=== PATIENT | male | born 1935 | race Caucasian/White ===

== ENCOUNTER 2019-04-05 15:26 | Inpatient (IN) ==
[~2019-04-05 15:26] MED LIST: NS 1,000 ML ONE
[2019-04-05] MEDS ORDERED: ASPIRIN PO ONE (15:34)
[2019-04-05] MEDS ORDERED: DUONEB (A & A) INH ONE (15:39)
[2019-04-05 15:49] LABS: BASO# 0.06 X1000 (0.0-0.2); BASO% 0.4 % (0.0-0.8); EOS# 0.81 X1000 (0.0-0.7); EOS% 5.3 % (0.0-10.0); HEMATOCRIT 47.7 % (42.0-52.0); HEMOGLOBIN 14.3 g/dL (14.0-18.0); IMM GRAN# 0.05 X1000 (0.0-0.04); IMM GRAN% 0.3 % (0.0-0.5); LYMPH% 46.1 % (20.5-51.1); MCH 25.6 PG (27-31); MCV 85.5 FL (81-99); MONO# 1.27 X1000 (0.11-0.59); MONO% 8.4 % (1.7-9.3); NEUT% 39.5 % (42.2-75.2); PLT 294 X1000 (130-400); RBC 5.58 XMIL (4.7-6.1); RDW 15.3 % (11.5-14.5); WBC 15.19 X1000 (4.8-10.8)
[2019-04-05 15:57] LABS: BE -7.1 mmoll (-3.0-3.0); BLOOD TYPE ARTERIAL; HCO3-(ACT) 19.1 mmoll (20.0-26.0); METHB 1.2 % (0.0-1.5); PCO2(98.6) 41 mmHg (35-45); PO2(98.6) 58 mmHg (60-100); SAMPLE BLOOD; SAO2 89.8 % (95.0-100.0); THB 13.9 g/dL (11.5-17.4); pH(98.6) 7.28 (7.35-7.45)
[2019-04-05 15:59] LABS: INR 1.05; PROTIME 14.2 Seconds (11.0-16.0)
--- NOTE | 2019-04-05 15:59 | Diag Imaging Result Doc PS360 ---
EXAM: CHEST-PORTABLE HISTORY: respiratory distress TECHNIQUE: Single view COMPARISON: 05/24/2017 FINDINGS: Poor inspiratory effort. There are increased interstitial markings throughout both lungs. The heart is mildly prominent. There is a left-sided pacemaker on the current exam. No pleural effusions identified. IMPRESSION: Bilateral infiltrates Electronically signed by Tj Vela 04/05/2019 3:57 PM
[2019-04-05 16:00] LABS: O2HB 86.8 % (95.0-99.0)
[2019-04-05 16:00] LABS: PTT 29.9 Seconds (22.3-41.8)
[2019-04-05 16:01] LABS: ALLEN TEST NO; MODALITY VENTIMASK
[2019-04-05 16:07] LABS: AGAP 20; ALBUMIN 4.3 g/dL (3.5-5.0); ALKALINE PHOSPHATASE 98 U/L (32-122); BUN 25 mg/dL (8-22); CALCIUM 8.9 mg/dL (8.8-10.2); CHLORIDE 103 mmol/L (98-107); COSMO 300; CREATININE 1.1 mg/dL (0.7-1.2); ESTIMATED GFR > 60; GLUCOSE 324 mg/dL (70-104); GOT 45 U/L (10-34); GPT 23 U/L (10-44); POTASSIUM 3.7 mmol/L (3.5-5.1); SODIUM 142 mmol/L (136-145); TCO2 19 mmol/L (25-35); TOTAL PROTEIN 7.2 g/dL (6.3-8.3)
[2019-04-05 16:18] LABS: CK PROFILE 1053 U/L (24-204)
[2019-04-05 16:28] LABS: URINE SOURCE CLEAN CATCH
[2019-04-05 16:31] LABS: BILIRUBIN URINE NEGATIVE (NEGATIVE); BLOOD URINE MODERATE (NEGATIVE); COLOR YELLOW; GLUCOSE URINE 70 mg/dL (NEGATIVE); KETONE URINE NEGATIVE (NEGATIVE); LEUKOCYTES URINE NEGATIVE (NEGATIVE); NITRITE URINE NEGATIVE (NEGATIVE); PROTEIN URINE 30 mg/dL (NEGATIVE); SP GRAVITY URINE 1.021; TURBIDITY URINE CLEAR (CLEAR); UROBILINOGEN URINE 3 mg/dL (NORMAL)
[2019-04-05 16:33] LABS: UR EPITHELIAL CELLS <10 /HPF (<10); URINE BACTERIA NEGATIVE /HPF; URINE RBC TNTC /HPF (<10); URINE WBC <10 /HPF (<10)
[2019-04-05 16:34] LABS: CK INDEX 2.1 (0.0-2.5); CK-MB 21.75 ng/mL (0.0-5.0)
--- NOTE | 2019-04-05 16:38 | Diag Imaging Result Doc PS360 ---
EXAM: CT HEAD W/O CONTRAST HISTORY: MENTAL STATUS CHANGES TECHNIQUE: CT head without contrast COMPARISON: 03/31/2019 FINDINGS: The patient's head is rotated in the gantry. No parenchymal hemorrhage. No epidural or subdural hematoma. No subarachnoid hemorrhage. No mass identified on this noncontrasted exam. No hydrocephalus. No sinus opacification. IMPRESSION: No interval change. This exam was performed using automated exposure control, adjustment of mA or kV according to patient size, and/or use of iterative reconstruction technique. Electronically signed by Tj Vela 04/05/2019 4:36 PM
[2019-04-05] MEDS ORDERED: LEVAQUIN 750 MG/D5W 750 MG/150 ML IVPB IV ONE (16:42)
--- NOTE | 2019-04-05 16:44 | EKG Report ---
Test Performed on : 04/05/2019 3:45:11 PM Test Reason : sob Blood Pressure : / mmHG Vent. Rate : 115 BPM Atrial Rate : 115 BPM P-R Int : 000 ms QRS Dur : 182 ms QT Int : 384 ms P-R-T Axes : 032 -57 101 degrees QTc Int : 531 ms Ventricular-paced rhythm with occasional sinus complexes Abnormal ECG When compared with ECG of 05-APR-2019 15:31, (Unconfirmed) Previous ECG has undetermined rhythm, needs review Unconfirmed Result
[2019-04-05] MEDS ORDERED: NS 1,000 ML IV ONE ×2 (16:53→18:07)
[2019-04-05] MEDS ORDERED: LEVAQUIN PO SCH (18:15)
[2019-04-05] MEDS ORDERED: ZOFRAN IV PRN (18:16)
[2019-04-05] MEDS ORDERED: TYLENOL PO PRN (18:16)
[2019-04-05] MEDS ORDERED: NS 1,000 ML IV SCH (18:30)
[2019-04-05] MEDS: DOXYCYCLINE 100 MG in NS 250 ML IV SCH (18:41)
--- NOTE | 2019-04-05 19:48 | HISTORY AND PHYSICAL ---
CHIEF COMPLAINT: Acute respiratory failure. HISTORY OF PRESENT ILLNESS: The patient is an 83-year-old male who presented to the ER via ambulance service. The ambulance service said they were unable to suction his tracheostomy. The patient has been seen [facility] for similar symptoms. Upon arrival to the ER, his O2 saturation was 45%. He was unresponsive. Blood pressures were low. Heart rates were 123. While in the ER, he was able to have his trach eventually suctioned out and his vital signs almost immediately improved. Currently, he is saturating 99% with blood pressure 116/61, respiratory 16. Patient is awake. He does each questions and overall he is much improved. ALLERGIES: No known drug allergies. MEDICATIONS: Synthroid , metformin 500 b.i.d., omeprazole 20 b.i.d., Zocor 40 at bedtime, hydrocodone p.r.n., and Bactroban as needed. REVIEW OF SYSTEMS: As noted above. Prior to this event, the patient denies any fevers, chills. Denies any recent infections. Denies any GI or issues. PAST MEDICAL HISTORY: Significant for hypertension, pacemaker, history of throat cancer requiring tracheotomy, diabetes, hypothyroidism, history of dementia. FAMILY HISTORY: Noncontributory. SOCIAL HISTORY: The patient is a long-time former smoker, but does not currently smoke, drink or use illicit substances. PHYSICAL EXAMINATION: VITAL SIGNS: Reviewed. Currently much improved. He is afebrile, pulse 103, respiratory 16, BP 116/61. HEENT: Normocephalic. NECK: Supple. SKIN: He does have a healing laceration in the left forehead. He has a tracheostomy that is not red or swollen. RESPIRATORY: Currently, he has a Ventimask over his trachea stoma. On initial presentation, he was in severe distress. Currently, he is in no distress. Initially, upon presenting to the ER, he was not ventilating well at all. He had effectively very little air movement. Currently, he has good air movement and he is ventilating quite well. His skin color has returned back to normal. LABORATORY: WBC is 15. CPK 1353 with a troponin pending and a BNP of 689. Plasma lactate initially high at 6.1. PH 7.28, PO2 at 58 on a Ventimask. ASSESSMENT: 1. Acute respiratory failure appears to have resolved. He did have a significant mucous plug that once removed, his O2 saturations went from 45% to 91% and his systolic blood pressure went from 65 to 125. 2. Probable pulmonary infiltrate on chest x-ray, although, he does have bilateral old scarring. PLAN: We are going to admit the patient to the hospital, place him on antibiotics, breathing treatments, oxygen and supportive care. Continue his home medications, place him on diabetic diet and we will follow. cc: Jaquan Leblanc MD MTDD
[2019-04-05] MEDS: DUONEB (A & A) INH PRN (21:20)
[2019-04-05 23:10] LABS: AGAP 14; ALBUMIN 3.4 g/dL (3.5-5.0); ALKALINE PHOSPHATASE 66 U/L (32-122); BUN 22 mg/dL (8-22); CALCIUM 7.7 mg/dL (8.8-10.2); CHLORIDE 109 mmol/L (98-107); COSMO 290; CREATININE 0.8 mg/dL (0.7-1.2); ESTIMATED GFR > 60; GLUCOSE 125 mg/dL (70-104); GOT 39 U/L (10-34); GPT 19 U/L (10-44); POTASSIUM 3.8 mmol/L (3.5-5.1); SODIUM 143 mmol/L (136-145); TCO2 20 mmol/L (25-35); TOTAL PROTEIN 5.9 g/dL (6.3-8.3)
[2019-04-06] MEDS: ATIVAN IV PRN ×3 (01:41→20:01)
[2019-04-06] MEDS: DUONEB (A & A) INH PRN ×3 (04:42→17:26)
[2019-04-06 06:14] LABS: HEMATOCRIT 39.4 % (42.0-52.0); HEMOGLOBIN 12.1 g/dL (14.0-18.0); MCH 25.7 PG (27-31); MCHC 30.7 g/dL (33-37); MCV 83.8 FL (81-99); MPV 11.1 FL (7.4-10.4); RBC 4.7 XMIL (4.7-6.1); RDW 15.2 % (11.5-14.5); WBC 15.3 X1000 (4.8-10.8)
[2019-04-06] MEDS: DOXYCYCLINE 100 MG in NS 250 ML IV SCH (06:15)
--- NOTE | 2019-04-06 07:55 | Diag Imaging Result Doc PS360 ---
CHEST-PORTABLE - 04/06/2019 INDICATION: Pneumonia COMPARISON: 04/05/2019 FINDINGS: Stable left-sided pacemaker. There is cardiomegaly and mild pulmonary vascular congestion similar to prior. There is some hazy interstitial infiltrates centrally grossly stable from prior. This may suggest pulmonary edema. No large pleural effusion. IMPRESSION: No change from prior. Electronically signed by Ramana Meneses 04/06/2019 7:53 AM
[2019-04-06] MEDS ORDERED: MUCOMYST 20% INH ONE (16:32)
[2019-04-06] MEDS ORDERED: NS 500 ML IV ONE (16:52)
[2019-04-06] MEDS ORDERED: SODIUM CHLORIDE 0.9% INJ SCH (17:00)
[2019-04-06 17:16] LABS: ALLEN TEST NO; BLOOD TYPE ARTERIAL; HCO3-(ACT) 25.6 mmoll (20.0-26.0); METHB 1.4 % (0.0-1.5); O2(CT) 16.9 mL/dL (15.0-23.0); O2HB 93.6 % (95.0-99.0); PCO2(98.6) 38 mmHg (35-45); PO2(98.6) 68 mmHg (60-100); SAMPLE BLOOD; SAO2 97.1 % (95.0-100.0); THB 12.8 g/dL (11.5-17.4); pH(98.6) 7.43 (7.35-7.45)
[2019-04-06 17:17] LABS: MODALITY COOL AEROSOL
[2019-04-06] MEDS: LEVAQUIN 750 MG/D5W 750 MG/150 ML IVPB IV SCH (17:21)
[2019-04-06] MEDS: TEFLARO 400 MG in NS 250 ML IV SCH (17:22)
[2019-04-06] MEDS: PROTONIX IV SCH (17:22)
--- NOTE | 2019-04-06 18:19 | PROGRESS NOTE ---
DATE: 04/06/2019 SUBJECTIVE: He is really not very responsive. OBJECTIVE: Blood pressure is 84/54, heart rate 96, respiratory rate of 20, temperature 100.9 degrees.Cardiovascular: Tachy. Pulmonary: Fairly clear. Gastrointestinal: Soft, protuberant. Bowel sounds positive. LABORATORY DATA: White count is 15, hemoglobin and hematocrit 12 and 39, platelets 155,000. I do not have any new other data today. Microbiology is pending including sputum culture. PROBLEM LIST: 1. Acute respiratory failure due to mucus plugging, possibly pneumonia. He is 93% on 28% and was recorded at 5. He has fever and a white count, so I do think this is probably some pneumonia. He is on doxycycline and Levaquin. Since he is hospital-acquired, may add to Teflaro and see how he does until we can get culture results. I will probably get a pulmonary opinion. We will continue Mucomyst, nebulizers, and follow closely. We need to repeat his blood gas. It was not great yesterday. 2. Altered mentation. I am really not sure what his baseline level of functionality is. I do not know if he has had a stroke that has caused his encephalopathy. He had throat cancer and he has dementia. 3. Pneumonia. We will continue empiric antibiotics and follow. 4. Disposition. Pending his clinical status. cc: Marco A Peraza MD
[2019-04-06] MEDS ORDERED: MORPHINE IV ONE (18:43)
[2019-04-06] MEDS ORDERED: LASIX IV ONE (18:50)
--- NOTE | 2019-04-06 19:02 | Diag Imaging Result Doc PS360 ---
EXAM: CHEST-PORTABLE HISTORY: resp distress TECHNIQUE: Single view COMPARISON: 7:22 AM FINDINGS: Interval worsening in the bilateral infiltrates. Electronically signed by Tj Vela 04/06/2019 7:00 PM
[2019-04-06] MEDS: DUONEB (A & A) INH SCH ×2 (19:57→23:08)
[2019-04-06] MEDS: MUCOMYST 20% INH SCH (19:57)
--- NOTE | 2019-04-06 20:03 | PROGRESS NOTE ---
DATE: 04/06/2019 Critical Alert Team call was called at about 6:30 p.m., and I responded. Apparently, patient was hypoxic, was in respiratory distress, and had started turning blue for which CAT call was called. When I entered the room, I saw patient in respiratory distress. He had significant flushing of his face and he was having abdominal breathing. His oxygen saturation went as low as 75%. He had aerosol on his tracheostomy. He appeared slightly agitated. On lung examination, he did have poor inspiratory effort and decreased lung sounds in both lung godoy. He also had abdominal breathing. He had adequate pulse on radial pulse examination, suggestive of a systolic blood pressure of more than 90. On examination of his tracheostomy stoma, there was crusting with flecks of crust inside the stoma. The respiratory therapist carefully removed the crusting, and we increased the oxygen through aerosol, following which his oxygen saturation improved to 85 to 90 percent. Meanwhile, checking clerk also arrived at the scene and he flushed the tracheostomy stoma with normal saline and applied some suction. Currently, patient had a saturation of 90%, and he will be transferred to ICU. Stat dose of morphine, Lasix, and chest x-ray have been ordered. cc: Alcides Rogers MD
--- NOTE | 2019-04-06 20:05 | PROGRESS NOTE ---
DATE: 04/06/2019 SUBJECTIVE: Patient has no new complaints. Did have some low blood pressures in the ER overnight. OBJECTIVE: Vital signs: Temperature is 98.6, pulse 106, respiratory rate 20, BP 86/76 to 119/73. General: The patient is lying in the bed. He is currently in mild respiratory distress. He does have a Ventimask over his tracheotomy. HEENT: Normocephalic. Neck: Supple. Cardiovascular: Tachycardia. Chest: Decreased breath sounds. Minimal wheezing. Poor air movement. Abdomen: Soft. Extremities: Moves all extremities. Neurological: No changes. ASSESSMENT: 1. Acute respiratory failure. 2. Probable pulmonary infiltrate. 3. Hypotension. 4. Leukocytosis. PLAN: We are going to continue the patient in the hospital. Follow his diabetes with sliding scale insulin. Continue antibiotics and continue to follow. cc: Jaquan Leblanc MD
--- NOTE | 2019-04-06 21:48 | PULMONOLOGY CONSULTATION ---
DATE: 04/06/2019 REQUESTING PHYSICIAN: Dr. Peraza. HISTORY OF PRESENT ILLNESS: Mr. Wing is an 83-year-old with history of tracheostomy. Dr. Peraza notified me he was in respiratory distress and had previously had a tracheostomy placed. At the bedside, he was mucus plugging. There was 10 mL of saline was instilled in his stoma site followed by suctioning. He had a vigorous cough and expelled large pieces of dried airway secretions. He remained hypoxemic, but his breath sounds were significantly more clear and his work of breathing quickly decreased. He will be transferred to the ICU for clinical monitoring while he recovers. PAST MEDICAL HISTORY: 1. History of head and neck cancer with prior tracheostomy. 2. Hypothyroidism. 3. Diabetes mellitus. 4. Peripheral vascular disease with lower extremity ulcers. 5. Dyslipidemia. 6. Status post pacemaker placement. SOCIAL HISTORY: Prior tobacco use but none currently. No alcohol use listed. FAMILY HISTORY: None contributory. REVIEW OF SYSTEMS: Limited. Patient was in distress. He will not answer questions. OBJECTIVE: Vital Signs: Blood pressure 89/62, heart rate 115, oxygen saturation 95%. HEENT: Pupils are midpoint and reactive. Oropharynx appears clear with poor dentition. Neck: Has tracheostomy site present with a well-healed stoma. Cardiac Exam: S1-S2. Abdomen: Soft. LABORATORIES: Chest x-ray this evening reveals increased bilateral infiltrates. CT scan of the head 2 days ago reveals no evidence of acute change. Microbiology; sputum culture is pending blood cultures are pending. Arterial blood gas this evening reveals pH 7.43, pCO2 of 38, PO2 of 68. IMPRESSION: An 83-year-old with history of head and neck cancer, who has: 1. Mucus plugging of his trachea with acute hypoxemic respiratory failure with respiratory distress. This has been corrected. 2. Bilateral infiltrates consistent with pneumonia. 3. Altered mental status with dementia. RECOMMENDATIONS: 1. Initiate scheduled nebulizer treatments. 2. Add Mucomyst to his nebulizer regimen. 3. Agree with broad-spectrum antibiotics. 4. ICU monitoring through the evening to ensure he continues to improve at that juncture. If he appears improving tomorrow, he can be transferred back to the PVC unit. cc: Mani Richards MD
[2019-04-07] MEDS: DUONEB (A & A) INH SCH ×6 (03:45→23:11)
[2019-04-07] MEDS: TEFLARO 400 MG in NS 250 ML IV SCH ×2 (04:17→16:06)
[2019-04-07] MEDS: ATIVAN IV PRN (04:30)
[2019-04-07 05:19] LABS: ALLEN TEST YES; BE 2.6 mmoll (-3.0-3.0); BLOOD TYPE ARTERIAL; HCO3-(ACT) 26.9 mmoll (20.0-26.0); METHB 1.2 % (0.0-1.5); O2(CT) 17.9 mL/dL (15.0-23.0); O2HB 96.4 % (95.0-99.0); PCO2(98.6) 41 mmHg (35-45); PO2(98.6) 119 mmHg (60-100); SAMPLE BLOOD; SAO2 99.4 % (95.0-100.0); THB 13.1 g/dL (11.5-17.4); pH(98.6) 7.43 (7.35-7.45)
[2019-04-07 05:20] LABS: MODALITY COOL AEROSOL
[2019-04-07] MEDS: LOVENOX SUBQ SCH (06:26)
[2019-04-07] MEDS ORDERED: VASELINE TOP PRN (06:44)
[2019-04-07 06:48] LABS: AGAP 12; BUN 16 mg/dL (8-22); CALCIUM 8.3 mg/dL (8.8-10.2); CHLORIDE 104 mmol/L (98-107); COSMO 281; ESTIMATED GFR > 60; GLUCOSE 107 mg/dL (70-104); POTASSIUM 3.7 mmol/L (3.5-5.1); SODIUM 140 mmol/L (136-145); TCO2 24 mmol/L (25-35)
[2019-04-07 07:10] LABS: BASO# 0.03 X1000 (0.0-0.2); BASO% 0.3 % (0.0-0.8); EOS# 0.36 X1000 (0.0-0.7); EOS% 3.5 % (0.0-10.0); HEMATOCRIT 40.3 % (42.0-52.0); HEMOGLOBIN 12.8 g/dL (14.0-18.0); IMM GRAN# 0.02 X1000 (0.0-0.04); IMM GRAN% 0.2 % (0.0-0.5); LYMPH# 0.53 X1000 (1.2-3.4); LYMPH% 5.2 % (20.5-51.1); MCH 26.8 PG (27-31); MCHC 31.8 g/dL (33-37); MCV 84.5 FL (81-99); MONO# 0.69 X1000 (0.11-0.59); MONO% 6.7 % (1.7-9.3); MPV 12.3 FL (7.4-10.4); NEUT# 8.66 X1000 (1.4-6.5); NEUT% 84.1 % (42.2-75.2); PLT 147 X1000 (130-400); RBC 4.77 XMIL (4.7-6.1); RDW 15.5 % (11.5-14.5); WBC 10.29 X1000 (4.8-10.8)
--- NOTE | 2019-04-07 07:10 | Diag Imaging Result Doc PS360 ---
EXAM: CHEST-PORTABLE 04/07/2019 HISTORY: dyspnea TECHNIQUE: AP portable at 0505 COMMENT: There is alveolar opacity in both upper lungs. The inspiration is slightly less optimal than on 04/06/2019. Otherwise are has been no significant change. IMPRESSION: Pulmonary edema and/or pneumonia. Electronically signed by Antione Heard 04/07/2019 7:08 AM
[2019-04-07] MEDS: MUCOMYST 20% INH SCH ×2 (08:18→19:41)
[2019-04-07] MEDS ORDERED: NS 500 ML IV ONE (15:27)
[2019-04-07] MEDS: PROTONIX IV SCH (16:01)
[2019-04-07] MEDS: LEVAQUIN 750 MG/D5W 750 MG/150 ML IVPB IV SCH (17:51)
--- NOTE | 2019-04-07 18:59 | PROGRESS NOTE ---
DATE: 04/07/2019 SUBJECTIVE: The patient was apparently transferred to the ICU last night from the PACU after having respiratory difficulty. He had yet another mucus plug which caused him to desaturate and have respiratory distress. The patient apparently had been admitted for the same problem and was initially at [place] [facility] for a bit, then transferred to [facility], but was not transferred under my service. I have not seen the patient for a couple of years now, and did not really come into the case until this morning. OBJECTIVE: Vital Signs: 98.7, 82, 15, 115/79, 100% saturated on 60% trach collar. General: The patient is asleep. He will not open his eyes command to command. He winces slightly with painful stimuli such as squeezing the leg or to a moderate chest rub. Even when I hold his eyes open, he will not keep them open. He is in a chronic head-down position, I think due to arthritis and/or kyphosis of the neck, almost like a failed neck syndrome. Lungs: Clear. He is not wheezing. His tracheostomy site has a bit of dried blood around the top of it. The place where his previous prosthesis was has a bit of blood around it. I do not see any sign of a prosthesis in place at my examination. Extremities: Show no peripheral edema. General: The patient is somewhat unkempt. LABORATORY: White cell count 10.2, hematocrit 40.3. AB.43, 41, 119, and 99% saturated on room air. Sodium is 140, BUN 16, creatinine 1.0. ASSESSMENT AND PLAN: 1. The patient's is also a patient of mine who came by the office this morning, and I had a long, long chat with her. She was insistent that I contact the patient's ENT doctors at [facility] in the [facility] about "reversing his tracheostomy." Although I tried to explain to her that given the number of times he had been down there, that had never been undertaken, but she was yet insistent. I spent a fair portion of the day with my staff trying to get in touch with the appropriate doctors at [facility] but was unable to do so because they would only put on the doctor who was education administrative assistant, who had no direct interaction with Mr. Wing. All in all, I felt that we could help stabilize the patient and keep him on mucolytic agents so he did have any plugging and hopefully get him home with rapid followup at [facility], and they could see what they felt necessary at that point. 2. 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 It has been problematic since the first time I laid eyes on the patient. The prosthesis was very far anterior, and the stoma was quite large, and given the fact that his neck was in a locked-down position, changing out that prosthesis was exceedingly difficult, and he had to go down to the [facility] about once a month, or slightly longer, to get that changed out by them. 3. The patient was still somewhat obtunded this morning. In review, he had some morphine last night, albeit not much, and then 1 mg of Ativan given to him at 4 a.m. According to the patient's family, it does not take much to sedate him quite heavily for a long time. At the time of my examination this morning he was not cooperative and clearly not oriented. I spoke at length with the nurse there and asked her to try and hold any sedatives to try and give him a chance to actually wake up on his own, and hopefully that would improve his respiratory status, blood pressure and other issues. 4. I reviewed all the orders put in by the hospitalist team while the patient was not under my care, and it appears that everything is in order there. Dr. Richards was consulted last night and has been exceedingly helpful in trying to keep the patient's airway patent. I think we will continue the present plan and allow for the patient to regain his usual mental status before proceeding with any other potential interventions. cc: Blayne Angel MD
--- NOTE | 2019-04-07 19:46 | PULMONOLOGY PROGRESS NOTE ---
DATE: 04/07/2019 SUBJECTIVE: The patient remains poorly responsive and does not follow commands. He does not have increased work of breathing. OBJECTIVE: Maximum temperature in the last 24 hours is 100.9 degrees. Blood pressure 123/77, heart rate 90, respiratory rate 18, oxygen saturation 98% on 40% FiO2. HEENT: Pupils appear equal, but he forcibly closes his eyes. Oropharynx appears dry. Neck: Supple. Chest: Scattered rhonchi bilaterally. Cardiac: S1, S2. Abdomen: Slightly obese and soft. Extremities: Trace edema. LABORATORY AND DIAGNOSTIC DATA: White blood count 10.29, hemoglobin 12.8, platelet count 147,000. Sodium 140, potassium 3.7, chloride 104, bicarbonate 24, BUN 16, creatinine 1.0, glucose 107. Chest x-ray reveals mild patchy infiltrates bilaterally. Sputum culture is growing a gram- positive cocci. Arterial blood gas reveals pH 7.43, pCO2 of 41, PO2 of 119. White blood count 10.29, hemoglobin 12.8, platelet count 147,000. IMPRESSION: An 83-year-old with: 1. Acute hypoxemic respiratory failure. 2. Bilateral pneumonia. 3. Delirium with dementia. 4. Mucus plugging on presentation. Airway now appears clear. PLAN: 1. Continue current nebulizer treatments. 2. Continue antibiotics pending results of sputum culture. 3. From a pulmonary standpoint, he could be transferred back to the PVC unit. cc: MD Blayne Lao MD
[2019-04-08] MEDS: DUONEB (A & A) INH SCH ×2 (03:57→11:47)
[2019-04-08] MEDS: TEFLARO 400 MG in NS 250 ML IV SCH (05:21)
[2019-04-08] MEDS: LOVENOX SUBQ SCH (05:21)
[2019-04-08 07:08] LABS: BASO# 0.02 X1000 (0.0-0.2); BASO% 0.3 % (0.0-0.8); EOS# 0.42 X1000 (0.0-0.7); EOS% 5.6 % (0.0-10.0); HEMATOCRIT 42.2 % (42.0-52.0); LYMPH# 0.34 X1000 (1.2-3.4); LYMPH% 4.5 % (20.5-51.1); MCH 26.1 PG (27-31); MCHC 30.8 g/dL (33-37); MCV 84.7 FL (81-99); MONO% 6.7 % (1.7-9.3); MPV 11.9 FL (7.4-10.4); NEUT# 6.23 X1000 (1.4-6.5); NEUT% 82.9 % (42.2-75.2); PLT 164 X1000 (130-400); RBC 4.98 XMIL (4.7-6.1); RDW 15.3 % (11.5-14.5); WBC 7.51 X1000 (4.8-10.8)
--- NOTE | 2019-04-08 07:31 | Diag Imaging Result Doc PS360 ---
EXAM: CHEST-PORTABLE HISTORY: dyspnea TECHNIQUE: Single view COMPARISON: 04/07/2019 FINDINGS: Poor inspiratory effort. The heart is enlarged. There is pulmonary edema. Infiltrates are less dense on the current study. 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 IMPRESSION: Mild interval improvement Electronically signed by Tj Vela 04/08/2019 7:29 AM
[2019-04-08 07:40] LABS: AGAP 11; BUN 17 mg/dL (8-22); CALCIUM 8.6 mg/dL (8.8-10.2); CHLORIDE 105 mmol/L (98-107); COSMO 284; CREATININE 0.9 mg/dL (0.7-1.2); ESTIMATED GFR > 60; GLUCOSE 89 mg/dL (70-104); POTASSIUM 3.9 mmol/L (3.5-5.1); SODIUM 142 mmol/L (136-145); TCO2 26 mmol/L (25-35)
[2019-04-08] MEDS ORDERED: DUONEB (A & A) INH SCH (09:00)
[2019-04-08] MEDS: MUCOMYST 20% INH SCH ×2 (11:47→19:46)
--- NOTE | 2019-04-08 12:20 | PROGRESS NOTE ---
DATE: 04/08/2019 SUBJECTIVE: There was no family present this morning. I did speak with the nurse and with the patient. He has his eyes open. He is alert and responsive. He is trying to eat some breakfast. He still looks a little sleepy to me, but is otherwise approaching his baseline level of interaction. VITAL SIGNS: 99.0, 92, 17, 109/75, 99% saturated on 40% trach collar. PHYSICAL EXAMINATION: Respiratory: The patient has bilateral mild expiratory wheeze, but seems to be moving air well. He is in no distress at the present time. Neurologic/Psychologic: Neurologically and psychologically, he appears to be approaching his baseline, but not back completely. Extremities: Show no peripheral edema. He has some cold excoriation arrington on his legs, which I have seen before in the office. They do not appear any different and do not appear grossly infected. LABORATORY: White cell count 7.5, hemoglobin 13. BUN 17, creatinine 0.9. Normal, blood sugar. MICROBIOLOGY: The patient's sputum culture grew Staphylococcus aureus that was resistant to oxacillin and penicillin. ASSESSMENT AND PLAN: 1. I was unable to talk with anyone at [facility] that was of any significance yesterday. The patient's called my office this morning and said that she spoke with the people at [facility] and that "they didn't want him." I somewhat doubt the veracity of that statement, that she was just able to call down there and talk with anybody who had a real connection to the patient's care and vargas that opinion. At any rate, I had assumed that we would end up treating this patient locally, getting her stabilized, and out of the hospital with rapid followup to [facility] on an outpatient basis. I do not feel the need to deviate from that point. 2. To my examination, it appears that the patient's laryngeal prosthesis is gone. The related that he had a recent biopsy of a "hard spot" within his tracheostomy. 3. The patient's mental status is improved this morning. I do not think that he is back to baseline; he did not get any type of sedation yesterday. We will continue to follow this. 4. Dr. Richards's note yesterday indicated the patient could go back to [facility], and so we are going to transfer him back there and just continue to follow his care. He has appropriate pulmonary orders written to keep his airway clear. Hopefully, we will have no further difficulty from this. It is of note that it is difficult to talk with the patient since he does not have his prosthesis in and really cannot talk. Hopefully, I will be able to communicate directly with some of the family members this weekend. cc: Blayne Angel MD
[2019-04-08] MEDS: FLOMAX PO SCH (12:31)
[2019-04-08] MEDS: SYNTHROID PO SCH (12:31)
[2019-04-08] MEDS: PRILOSEC PO SCH ×2 (12:31→19:50)
--- NOTE | 2019-04-08 14:13 | PROVIDER PROGRESS NOTE ---
Progress Note Dr. Lowry Progress Note/Pulmonary and or critical care We appreciated progress of care, Complications, change in diagnosis, and instructions to patient. Subjective: We note the level of consciousness, bed (chair) position, family presence (if any), level of lethargy, feeling of symptoms, and changes from baseline condition/symptom. The patient appears asleep without snoring. He is on Trach collar 40%. It is hard to wake him up. He eventually did open his eyes, but did not say anything. He closed his eyes again and fell back to sleep soon. No family at the bedside. Objective: Vital Signs: We reviewed EMR current values for Pulse rate, Blood pressure, Pulse rate, respiratory rate and Pulse oximetry. Also noted other values and trends if present (e.g. I/O, CVP). T 99.0 (the highest temperature in last 24 hours is 99.4), GA 94, RR 19, BP 134/84 and SaO2 100% on Trach Collar 40%. I/O +2938 ml Physical Examination: General: Appear unkempt. Lying in bed with no acute distress noted. HEENT: Normocephalic. Tracheostomy in place. Mucosa pink and moist. Poor dentition. Respiratory: Even and unlabored. On trach collar. Symmetrical excursion. Diminished breathing sounds bilaterally. CVS: S1 and S2 with murmur. Abdomen: soft. Nontender. Nondistended. Bowel sounds present. Extremities: Trace pedal edema. Neuro: Sleep, arousable, but not answering questions or following commands. Labs and Radiology: Reviewed available labs and radiology values available at time of EMR review. Laboratory Results 04/07/19 04/08/19 04/08/19 20:43 05:50 05:50 WBC 7.51 RBC 4.98 Hgb 13.0 L Hct 42.2 MCV 84.7 MCH 26.1 L MCHC 30.8 L RDW Std Deviation 15.3 H Plt Count 164 MPV 11.9 H Immature Gran % (Auto) 0.0 Neut % (Auto) 82.9 H Lymph % (Auto) 4.5 L [place] % (Auto) 6.7 Eos % (Auto) 5.6 Baso % (Auto) 0.3 Immature Gran # (Auto) 0.00 Neut # (Auto) 6.23 Lymph # (Auto) 0.34 L [place] # (Auto) 0.50 Eos # (Auto) 0.42 Baso # (Auto) 0.02 Sodium 142 Potassium 3.9 Chloride 105 Carbon Dioxide 26 Anion Gap 11 BUN 17 Creatinine 0.9 Estimated GFR/1.73 m2 > 60 BUN/Creatinine Ratio 19 Glucose 89 POC Glucose 82 Calculated Osmolality 284 Calcium 8.6 L 04/08/19 04/08/19 04/08/19 07:10 11:51 15:26 WBC RBC Hgb Hct MCV MCH MCHC RDW Std Deviation Plt Count MPV Immature Gran % (Auto) Neut % (Auto) Lymph % (Auto) [place] % (Auto) Eos % (Auto) Baso % (Auto) Immature Gran # (Auto) Neut # (Auto) Lymph # (Auto) [place] # (Auto) Eos # (Auto) Baso # (Auto) Sodium Potassium Chloride Carbon Dioxide Anion Gap BUN Creatinine Estimated GFR/1.73 m2 BUN/Creatinine Ratio Glucose POC Glucose 79 79 83 Calculated Osmolality Calcium Assessment: Acute hypoxemic respiratory failure. Bilateral pneumonia. Mucus plugging of trachea on presentation. Improved. Delirium with dementia. Plan: Continue current treatment and supportive care per admitting and other teams on the case. Antibiotic (Ceftaroline and Levaquin). Bronchodilators. Mucomyst. Oxygen titrated to patients needs per clinical protocols. Appropriate DVT and GI prophylaxis Input was appreciated from Admitting MD and other teams on the case. Evaluation time in minutes: 34 minutes.
[2019-04-08] MEDS: DOXYCYCLINE 100 MG in NS 250 ML IV SCH (15:44)
[2019-04-08] MEDS: LEVAQUIN 750 MG/D5W 750 MG/150 ML IVPB IV SCH (18:19)
[2019-04-08] MEDS: ZOCOR PO SCH (19:50)
[2019-04-08] MEDS: ATIVAN IV PRN (19:51)
[2019-04-09] MEDS: ZOCOR PO SCH ×2 (00:29→20:17)
[2019-04-09] MEDS: PRILOSEC PO SCH ×3 (00:29→20:17)
[2019-04-09] MEDS: ATIVAN IV PRN ×5 (00:30→20:27)
[2019-04-09] MEDS: DOXYCYCLINE 100 MG in NS 250 ML IV SCH ×2 (01:06→13:24)
[2019-04-09] MEDS: LOVENOX SUBQ SCH (05:02)
[2019-04-09 06:30] LABS: AGAP 12; BUN 15 mg/dL (8-22); CALCIUM 8.7 mg/dL (8.8-10.2); CHLORIDE 100 mmol/L (98-107); COSMO 276; CREATININE 0.8 mg/dL (0.7-1.2); ESTIMATED GFR > 60; GLUCOSE 94 mg/dL (70-104); SODIUM 138 mmol/L (136-145); TCO2 26 mmol/L (25-35)
[2019-04-09] MEDS: MUCOMYST 20% INH SCH ×2 (08:12→21:03)
[2019-04-09] MEDS: ALBUTEROL NEB INH SCH ×3 (08:15→21:03)
[2019-04-09] MEDS: FLOMAX PO SCH (08:51)
[2019-04-09] MEDS: SYNTHROID PO SCH (08:52)
--- NOTE | 2019-04-09 08:59 | PROGRESS NOTE ---
DATE: 04/09/2019 SUBJECTIVE: I spoke at length with nursing and with respiratory therapy. The patient had a desaturation event yesterday which resulted in the use of saline through his tracheostomy and suction pulled out about a 6-inch long solid mucous plug. Once the obstruction was relieved, his oxygen saturation returned to normal. He had no other incidents since then. OBJECTIVE: Vital Signs: 98.1, 85, 17, 125/78, 98% saturated on 40% trach collar. General: On physical examination, the patient's eyes are open. He is alert and responsive. He is a little bit agitated I think mainly because he is unable to speak or communicate. Lungs: The patient's lungs are clear. He is not wheezing today. He is not tachypneic. Cardiovascular: Regular. Approximately 90 beats per minute. He has occasional ectopy noted on the monitor and on physical exam. Abdomen: Show bowel sounds are present. Extremities: Show no peripheral edema. LABORATORIES: None today. ASSESSMENT AND PLAN: 1. The patient's respiratory status is still somewhat tenuous if he is able to produce huge mucus plugs like that so quickly. He is on Mucomyst at present. I am going to add some guaifenesin, and we will continue to suction as needed. When he does not have a mucus plug, his oxygen saturation and function are quite good. 2. The patient had Staphylococcus aureus grown from the sputum. He is on doxycycline and Levaquin. I will likely discontinue the Levaquin soon. 3. Mental status has recovered as good as I can tell. Since he is unable to speak, absent of his laryngeal prosthesis, it is going to be difficult to assess this. He appears otherwise at baseline. 4. Transfer orders were put in for [facility], but they were unable to get him a bed. Those orders are still good for now. 5. The patient's blood sugar is being monitored, and physical therapy has been consulted, as well as Case Management. cc: Blayne Angel MD
--- NOTE | 2019-04-09 09:30 | PROVIDER PROGRESS NOTE ---
Progress Note Dr. Lowry Progress Note/Pulmonary and or critical care We appreciated progress of care, Complications, change in diagnosis, and instructions to patient. Subjective: We note the level of consciousness, bed (chair) position, family presence (if any), level of lethargy, feeling of symptoms, and changes from baseline condition/symptom. The patient appears asleep with eyes closed. He is on Trach collar 40%. He does not open his eyes when his name is called. No family at the bedside. Objective: Vital Signs: We reviewed EMR current values for Pulse rate, Blood pressure, Pulse rate, respiratory rate and Pulse oximetry. Also noted other values and trends if present (e.g. I/O, CVP). T 98.1 (No fever in last 24 hours), ID 85, RR 22, BP 135/103 and SaO2 98% on Trach Collar 40%. I/O -605 ml Physical Examination: General: Lying in bed with no acute distress noted. HEENT: Normocephalic. Tracheostomy in place. Mucosa pink and moist. Poor dentition. Respiratory: Even and unlabored. On trach collar. Symmetrical excursion. Diminis hed breathing sounds bilaterally. CVS: Irregularly irregular at times. S1 and S2 with murmur and occasional extra heart sound. Abdomen: soft. Nontender. Nondistended. Bowel sounds present. Extremities: Trace pedal edema. Neuro: Resting with eyes closed, but not answering questions or following commands. Labs and Radiology: Reviewed available labs and radiology values available at time of EMR review. Laboratory Results 04/08/19 04/09/19 04/09/19 20:00 04:50 05:51 Sodium 138 Potassium 4.0 Chloride 100 Carbon Dioxide 26 Anion Gap 12 BUN 15 Creatinine 0.8 Estimated GFR/1.73 m2 > 60 BUN/Creatinine Ratio 19 Glucose 94 POC Glucose 97 104 Calculated Osmolality 276 Calcium 8.7 L 04/09/19 15:57 Sodium Potassium Chloride Carbon Dioxide Anion Gap BUN Creatinine Estimated GFR/1.73 m2 BUN/Creatinine Ratio Glucose POC Glucose 83 Calculated Osmolality Calcium Assessment: Acute hypoxemic respiratory failure. Bilateral pneumonia. Sputum culture positive for Staphylococcus Aureus resistant to oxacillin and penicillin-G. Mucus plugging of trachea on presentation. Improved. Delirium with dementia. Plan: Continue current treatment and supportive care per admitting and other teams on the case. Antibiotic (Currently on Doxycycline and Levaquin; Dr. Angel is planning to discontinue Levaquin). Bronchodilators. Mucomyst. Oxygen titrated to patients needs per clinical protocols. Appropriate DVT and GI prophylaxis Input was appreciated from Admitting MD and other teams on the case. Evaluation time in minutes: 35 minutes.
[2019-04-09] MEDS: LEVAQUIN 750 MG/D5W 750 MG/150 ML IVPB IV SCH (16:03)
[2019-04-09] MEDS: BIDEX PO SCH ×2 (18:56→20:17)
[2019-04-10] MEDS: ATIVAN IV PRN ×3 (01:12→21:17)
[2019-04-10] MEDS: DOXYCYCLINE 100 MG in NS 250 ML IV SCH ×2 (01:12→14:37)
[2019-04-10] MEDS: ALBUTEROL NEB INH SCH ×4 (04:00→21:28)
[2019-04-10] MEDS: LOVENOX SUBQ SCH (05:26)
[2019-04-10 06:37] LABS: BASO# 0.03 X1000 (0.0-0.2); BASO% 0.5 % (0.0-0.8); EOS# 0.52 X1000 (0.0-0.7); EOS% 8.1 % (0.0-10.0); HEMOGLOBIN 14.3 g/dL (14.0-18.0); IMM GRAN# 0.04 X1000 (0.0-0.04); IMM GRAN% 0.6 % (0.0-0.5); LYMPH# 0.58 X1000 (1.2-3.4); MCH 26.3 PG (27-31); MCHC 31.8 g/dL (33-37); MCV 82.7 FL (81-99); MONO# 0.59 X1000 (0.11-0.59); MONO% 9.1 % (1.7-9.3); MPV 11.6 FL (7.4-10.4); NEUT# 4.69 X1000 (1.4-6.5); NEUT% 72.7 % (42.2-75.2); PLT 193 X1000 (130-400); RBC 5.44 XMIL (4.7-6.1); RDW 14.8 % (11.5-14.5); WBC 6.45 X1000 (4.8-10.8)
[2019-04-10 07:10] LABS: AGAP 13; ALB/GLOB RATIO 1.1; ALBUMIN 3.3 g/dL (3.5-5.0); ALKALINE PHOSPHATASE 65 U/L (32-122); BUN 16 mg/dL (8-22); CALCIUM 9.1 mg/dL (8.8-10.2); CHLORIDE 103 mmol/L (98-107); COSMO 284; CREATININE 0.8 mg/dL (0.7-1.2); ESTIMATED GFR > 60; GLUCOSE 87 mg/dL (70-104); GOT 36 U/L (10-34); GPT 22 U/L (10-44); POTASSIUM 3.9 mmol/L (3.5-5.1); SODIUM 142 mmol/L (136-145); TCO2 26 mmol/L (25-35); TOTAL BILIRUBIN 0.86 mg/dL (0.20-1.00); TOTAL PROTEIN 6.3 g/dL (6.3-8.3)
--- NOTE | 2019-04-10 07:52 | PROVIDER PROGRESS NOTE ---
Progress Note Dr. Lowry Progress Note/Pulmonary and or critical care We appreciated progress of care, Complications, change in diagnosis, and instructions to patient. Subjective: We note the level of consciousness, bed (chair) position, family presence (if any), level of lethargy, feeling of symptoms, and changes from baseline condition/symptom. The patient appears asleep with eyes closed. No acute distress noted. He is on Trach collar 40%. He does not open his eyes when his name is called. He put his left hand on the m[place] area and it appears like he is trying to pull it. Upper extremity tremor noted. No family at the bedside. Objective: Vital Signs: We reviewed EMR current values for Pulse rate, Blood pressure, Pulse rate, respiratory rate and Pulse oximetry. Also noted other values and trends if present (e.g. I/O, CVP). T 98.7 (No fever in last 24 hours), AL 86, RR 16, BP 135/89 and SaO2 98% on Trach Collar 40%. I/O -105 ml Physical Examination: General: Lying in bed with no acute distress noted. HEENT: Normocephalic. Tracheostomy in place. Mucosa pink and moist. Poor dentition. Respiratory: Even and unlabored. On trach collar. Symmetrical excursion. Diminished breathing sounds bilaterally. CVS: Irregularly irregular. S1 and S2 with murmur and occasional extra heart sound. Abdomen: soft. Nontender. Nondistended. Bowel sounds present. Extremities: No pedal edema. Some erythema on left leg with some healing scratch es. Neuro: Resting with eyes closed, but not answering questions or following commands. Labs and Radiology: Reviewed available labs and radiology values available at time of EMR review. Laboratory Results 04/09/19 04/10/19 04/10/19 20:32 05:15 05:15 WBC 6.45 RBC 5.44 Hgb 14.3 Hct 45.0 MCV 82.7 MCH 26.3 L MCHC 31.8 L RDW Std Deviation 14.8 H Plt Count 193 MPV 11.6 H Immature Gran % (Auto) 0.6 H Neut % (Auto) 72.7 Lymph % (Auto) 9.0 L [place] % (Auto) 9.1 Eos % (Auto) 8.1 Baso % (Auto) 0.5 Immature Gran # (Auto) 0.04 Neut # (Auto) 4.69 Lymph # (Auto) 0.58 L [place] # (Auto) 0.59 Eos # (Auto) 0.52 Baso # (Auto) 0.03 Sodium 142 Potassium 3.9 Chloride 103 Carbon Dioxide 26 Anion Gap 13 BUN 16 Creatinine 0.8 Estimated GFR/1.73 m2 > 60 BUN/Creatinine Ratio 20 Glucose 87 POC Glucose 84 Calculated Osmolality 284 Calcium 9.1 Total Bilirubin 0.86 AST 36 H ALT 22 Alkaline Phosphatase 65 Total Protein 6.3 Albumin 3.3 L Globulin 3.0 Albumin/Globulin Ratio 1.1 04/10/19 04/10/19 06:23 10:18 WBC RBC Hgb Hct MCV MCH MCHC RDW Std Deviation Plt Count MPV Immature Gran % (Auto) Neut % (Auto) Lymph % (Auto) [place] % (Auto) Eos % (Auto) Baso % (Auto) Immature Gran # (Auto) Neut # (Auto) Lymph # (Auto) [place] # (Auto) Eos # (Auto) Baso # (Auto) Sodium Potassium Chloride Carbon Dioxide Anion Gap BUN Creatinine Estimated GFR/1.73 m2 BUN/Creatinine Ratio Glucose POC Glucose 83 87 Calculated Osmolality Calcium Total Bilirubin AST ALT Alkaline Phosphatase Total Protein Albumin Globulin Albumin/Globulin Ratio Assessment: Acute hypoxemic respiratory failure. Bilateral pneumonia. Sputum culture positive for Staphylococcus Aureus resistant to oxacillin and penicillin-G. Mucus plugging of trachea on presentation. Improved. Delirium with dementia. Plan: Continue current treatment and supportive care per admitting and other teams on the case. Antibiotic (Doxycycline and Levaquin). Bronchodilators. Mucomyst. Oxygen titrated to patients needs per clinical protocols. Appropriate DVT and GI prophylaxis Input was appreciated from Admitting MD and other teams on the case. Evaluation time in minutes: 34 minutes.
[2019-04-10] MEDS: MUCOMYST 20% INH SCH ×2 (08:14→21:28)
[2019-04-10] MEDS: BIDEX PO SCH ×4 (11:40→20:18)
[2019-04-10] MEDS: FLOMAX PO SCH (11:41)
[2019-04-10] MEDS: PRILOSEC PO SCH ×2 (11:41→20:18)
[2019-04-10] MEDS: SYNTHROID PO SCH (11:42)
[2019-04-10] MEDS: CLINIMIX E 4.25%-5% SOLUTION 1,000 ML IV SCH (13:00)
--- NOTE | 2019-04-10 13:25 | PROGRESS NOTE ---
DATE: 04/10/2019 SUBJECTIVE: The patient is asleep in the bed. Although he arouses slightly to my exam, he does not make any meaningful interim. Review of the chart shows that he was agitated this morning. He got a dose of Ativan at approximately 5 o'clock this morning or 5:30. He tends to rather easily be sedated, but throughout his stay in the ICU, I have not had a terrible amount of meaningful interaction with him. The patient's nurse noted although he can follow commands and squeeze hands and such, he has difficulty putting his lips around a straw and is difficult to feed. In fact, he has had very little nutrition since he has been here. OBJECTIVE: Vital Signs: 97.8, 104, 21, 147/86, 98% saturated on trach collar, although I do note that the trach collar is out of position. Lungs: The patient's lungs are clear. He is in no respiratory distress. He is asleep with his eyes closed. He has a slight bit of periorbital edema. He does not respond to my name calling or trying to examine him with the stethoscope. Cardiovascular: Regular. Abdomen: Shows bowel sounds are present. Extremities: Show signs of old and new excoriation with healing wounds. There is no direct sign of infection. ASSESSMENT AND PLAN: 1. Now that the patient is on Mucomyst and guaifenesin, he has not had any other hypoxemic events. His respiratory status is improved. We will continue this treatment methodology to keep his airway clear. 2. The patient has Staphylococcus aureus growing from the sputum. He is on doxycycline and Levaquin. 3. The patient's mental status seems to have taken a down turn. It is unclear whether this is medication related, but having had 2 hypoxemic events, he has not reached back to his baseline. I plan to get a CT can tomorrow to make sure that no other untoward event has taken place. 1. The patient has transfer orders to the [facility], but no beds are available. 2. I am going to start some ProcalAmine for a little bit of nutrition and hydration. 3. Blood sugars are being monitored. 4. Physical therapy and case management have been consulted. cc: Blayne Angel MD
[2019-04-10] MEDS: LEVAQUIN 750 MG/D5W 750 MG/150 ML IVPB IV SCH (17:34)
[2019-04-10] MEDS: ZOCOR PO SCH (20:18)
[2019-04-11] MEDS: ATIVAN IV PRN (01:35)
[2019-04-11] MEDS: DOXYCYCLINE 100 MG in NS 250 ML IV SCH ×2 (01:35→13:24)
[2019-04-11] MEDS: ALBUTEROL NEB INH SCH ×4 (03:20→21:36)
[2019-04-11] MEDS: LOVENOX SUBQ SCH (05:31)
[2019-04-11] MEDS: CLINIMIX E 4.25%-5% SOLUTION 1,000 ML IV SCH (07:47)
--- NOTE | 2019-04-11 08:47 | Diag Imaging Result Doc PS360 ---
EXAM: CT HEAD W/O CONTRAST 04/11/2019 HISTORY: 3 hypoxic events TECHNIQUE: This exam was performed using automated exposure control, adjustment of mA or kV according to patient size, and/or use of iterative reconstruction technique. COMMENT: There are mild atrophic changes. There is no evidence of mass effect, bleed, or abnormal extra-axial fluid collection. Compared to the previous examination of 04/05/2019 there has been no appreciable change. The visualized paranasal sinuses are clear. The calvarium is intact. IMPRESSION: No evidence of acute intracranial disease. Electronically signed by Antione Heard 04/11/2019 8:45 AM
[2019-04-11] MEDS: FLOMAX PO SCH (09:01)
[2019-04-11] MEDS: BIDEX PO SCH ×3 (09:01→18:02)
[2019-04-11] MEDS: SYNTHROID PO SCH (09:02)
[2019-04-11] MEDS: PRILOSEC PO SCH (09:02)
[2019-04-11] MEDS: MUCOMYST 20% INH SCH ×2 (11:23→21:36)
--- NOTE | 2019-04-11 13:45 | PULMONOLOGY PROGRESS NOTE ---
DATE: 04/11/2019 SUBJECTIVE: The patient's eyes are open. He does not follow commands. OBJECTIVE: Vital Signs: The patient has been afebrile for the last 24 hours. Blood pressure 123/80, heart rate 97, respiratory rate 21, oxygen saturation 95% on tracheostomy collar. HEENT: Pupils are equal and reactive. Oropharynx appears clear. Neck: Evaluation is limited. He keeps his chin tilted, but no overt obstruction identified. Chest: Reveals occasional rhonchi bilaterally. Cardiac: S1-S2. Abdomen: Soft. Extremities: Without edema. LABORATORY DATA: CT scan of the brain reveals mild atrophic changes, but no evidence of acute disease. No chemistry, CBC or ABG today. IMPRESSION: An 83-year-old with 1. Mucus plugging of his tracheostomy with acute hypoxemic respiratory failure. 2. Bilateral pneumonia with methicillin-resistant Staphylococcus aureus identified on sputum. 3. Component of dementia with delirium. He actually appears more alert today than last . PLAN: 1. Continue antibiotics for pneumonia. 2. Continue nebulizer treatments to prevent airway obstruction and drying. 3. Follow up chest x-ray tomorrow. cc: MD Blayne Lao MD
--- NOTE | 2019-04-11 16:45 | PROGRESS NOTE ---
DATE: 04/11/2019 SUBJECTIVE: The patient was in CT scan early this morning but rolled back in and I did examine the patient in the bed. He was sleepy but seemed to respond with eyes opening and was able to follow simple command by the nurse early on that morning. It has been difficult to assess the patient's neurological status because of over the weekend he was not nearly as alert and aware as he had been on Thursday. PHYSICAL EXAMINATION: Vital Signs: 98.9, 86, 19, 138/84, 100 saturated on 40% tracheostomy collar. HEENT: The patient has eyes closed. His head is tilted to the right which is baseline. His tracheostomy collar slightly off to the left. Lungs: Clear. He does not have any wheezing. Cardiovascular: Regular. Extremities: Show excoriation on the skin. There is no edema. LABORATORIES: Laboratories from yesterday were all within normal limits. ASSESSMENT AND PLAN: 1. The patient's neurological status is of concern. I got a CT scan today which was essentially read as no acute findings. He has had 2 or 3 hypoxic events due to mucus plugging. When I review the chart, I found that despite asking the nursing staff Thursday and through the to avoid sedation, the patient had gotten 5 doses of Ativan on Thursday and 3 doses on Thursday. According to his , he is very easily sedated and obtunded by medications such as this, so I have discontinued that completely. I want to see what his true neurological status is after this medication washes out. He was reportedly difficult to control at times but I have not witnessed this myself. At baseline this man was walking and could communicate through his laryngeal prosthesis and although he has some mild to moderate forgetfulness which is likely dementia related, he was very functional up until these incidents. I spoke at length with his on the phone in the afternoon prior to this dictation and explained the rationale for how we go forward. 1. The patient had Staph aureus from his tracheostomy site. He is being treated with antibiotics for this and presumed pneumonia. His white cell count is normal. Dr. Richards is following. 2. The patient is getting Mucomyst for his mucus plugging, which led to his hypoxic events and falls. 3. I am going to have the nurses take out his sutures in his forehead. 4. I was informed by the nursing staff that a bed was available in the [facility] step-down unit and he will be transferred today. cc: Blayne Angel MD
[2019-04-12] MEDS: DOXYCYCLINE 100 MG in NS 250 ML IV SCH ×2 (01:28→13:27)
[2019-04-12] MEDS: BIDEX PO SCH ×5 (02:32→20:36)
[2019-04-12] MEDS: PRILOSEC PO SCH ×3 (02:33→20:35)
[2019-04-12] MEDS: ZOCOR PO SCH ×2 (02:33→20:36)
[2019-04-12] MEDS: ALBUTEROL NEB INH SCH ×4 (03:25→20:20)
[2019-04-12] MEDS: LOVENOX SUBQ SCH (06:12)
[2019-04-12] MEDS: CLINIMIX E 4.25%-5% SOLUTION 1,000 ML IV SCH ×2 (06:12→19:11)
--- NOTE | 2019-04-12 07:42 | Diag Imaging Result Doc PS360 ---
CHEST-PORTABLE - 04/12/2019 INDICATION: abnormal exam COMPARISON: 04/08/2019 FINDINGS: Stable left-sided dual-chamber pacemaker in good position. Stable severely low lung volumes. Stable moderate cardiomegaly. Stable patchy atelectasis or pulmonary edema in the lung bases. No new infiltrates. No significant pleural effusion. IMPRESSION: No change from prior. Electronically signed by Ramana Meneses 04/12/2019 7:40 AM
[2019-04-12] MEDS: FLOMAX PO SCH (08:13)
[2019-04-12] MEDS: SYNTHROID PO SCH (08:14)
[2019-04-12] MEDS: MUCOMYST 20% INH SCH ×2 (09:06→20:20)
--- NOTE | 2019-04-12 09:31 | PROGRESS NOTE ---
DATE: 04/12/2019 SUBJECTIVE: The patient is in the bed. He has his eyes open. He has his head tilted to the right, which is his usual fashion. His mouth is a bit asymmetric. He does not really respond meaningfully. OBJECTIVE: Vital Signs: 98.9, 96, 18, 130/89, 92% saturated on trach collar. PHYSICAL EXAMINATION: General: As described in HPI. He is in no respiratory distress. Lungs: Clear. Cardiovascular: Regular. Extremities: Have no peripheral edema. Neurologic: I really cannot get the patient to respond. LABORATORY DATA: There were no laboratories drawn today. ASSESSMENT AND PLAN: 1. Neurological status has not recovered. CT scan did not show any acute disease. I canceled all sedatives and so he has not had any in the last 24 hours that I can tell based on the electronic chart. I will continue to leave these out. I have consulted Neurology for their opinion as to whether he may have suffered a hypoxic brain injury of some sort from the mucous plugging. 2. The patient had Staphylococcus aureus coming from his tracheostomy site as well as likely bilateral pneumonia. His white cell count has been normal but we will continue on antibiotics. 3. The patient is on Mucomyst for mucus plugging. 4. The patient has deep venous thrombosis prophylaxis. cc: Blayne Angel MD
--- NOTE | 2019-04-12 14:55 | NEUROLOGY CONSULTATION ---
DATE: 04/12/2019 REASON FOR CONSULT: Altered mental status. HISTORY OF PRESENT ILLNESS: This is a 83-year-old male admitted 04/05 with respiratory distress from mucous plugging of his tracheostomy. History is from chart review as the patient is unable to provide the history and there is no family currently available. He had an oxygen saturation of 45% upon arrival to the emergency department. He was unresponsive, he was hypotensive. Heart rate was 123. Vital signs improved after he was successfully suctioned to remove the mucus plug. It seems he remained a bit sleepy initially during his hospital course but toward the end of last week he began to perk up some. Throughout his hospital course he has had a couple of further mucous plugs with at least 1 CAT call. He is being treated for pneumonia as well. It looks as though over the weekend his mental status declined again and that had been in the setting of receiving multiple doses of lorazepam it looks like 5 on Thursday and 3 on Thursday 2 days ago. had mentioned he is easily sedated with these types of medications and those have been discontinued now. Head CT was obtained and did not show acute findings. Apparently at baseline the patient is ambulatory and communicates via his laryngeal prosthesis. He has some forgetfulness but otherwise functional prior to admission. PAST MEDICAL HISTORY: Hypertension, diabetes, pacemaker history of throat cancer requiring tracheostomy, hypothyroidism, presumed dementia. Family history and review of systems unable to obtain due to patient factor. SOCIAL HISTORY: He is a previous smoker. No alcohol or illicits. He is . PHYSICAL EXAM: Vital Signs: He has been afebrile, blood pressure 125/85 on arrival, there has been some intermixed relatively uncommon or rare hypotensive reads as low as 80s to 90s systolic current 135/85, pulse 80s to 90s recently, respirations 20, 97% on tracheostomy collar. Mr. Wing is supine in bed with eyes closed. With loud voice he lifts the eyebrows but does not open the eyes, with voice plus noxious sternal rub he opens the eyes briefly he does not remain alert. He is able to squeeze my hands consistently and release bilaterally with repeated trials. He does not follow other commands however. He vigorously rejects passive eye opening and I cannot easily visualize eyes or pupils. His head is somewhat resting toward the right side and downward, with grimace I did not see definite focal asymmetry. Tone appeared equal in the limbs. He was able to mild to moderately squeeze my hand on command. He had some semi purposeful movements of the upper extremities in response to noxious stimuli. In the lower extremities he responded to noxious stimuli with some lower extremity withdrawal and some more prominent movements of the upper extremities. Reflexes are diminished symmetric, no clonus, plantar response is silent. DIAGNOSTICS: Head CT 04/05/2019 no acute findings. Head CT 04/11/2019 no acute findings. There is at least mild generalized cerebral atrophy. This was personally reviewed. Normal white count, BUN, creatinine, sodium, blood glucose. Calcium 8.3 now 9.1, AST 36, ALT normal. Staph aureus from sputum culture influenza negative. Blood cultures negative. ASSESSMENT AND PLAN: Global encephalopathy without definite focal feature. I suspect there may be a significant contribution from sedating medications and I agree with withholding all of those. Let us see if he can wake up more. Current medical illness could also be contributing in both of these particularly if he has an underlying cognitive impairment syndrome. If he does he would be at risk for encephalopathy and even prolonged encephalopathy with any toxic metabolic or otherwise disturbance. Agree with treating his medical conditions holding all sedation and following clinically. If he does not show improvement soon I would recommend a routine EEG. Thank you for the consultation. cc: MD Blayne Chavira MD
--- NOTE | 2019-04-12 23:49 | PULMONOLOGY PROGRESS NOTE ---
DATE: 04/12/2019 SUBJECTIVE: The patient is resting comfortably in his bed. He does respond to stimuli. He does not follow commands. He will not tolerate p.o. intake. OBJECTIVE: The patient has been afebrile for the last 24 hours. Blood pressure 115/84, heart rate 92, respiratory rate 20, oxygen saturation 93% on tracheostomy collar. HEENT: Pupils are equal and reactive. Oropharynx appears clear. Neck is supple, with tracheostomy collar in place. Mild secretions around opening. No evidence of significant crusting. Chest reveals scattered rhonchi. Cardiac exam: S1, S2. Abdomen is soft. Extremities are without edema. DIAGNOSTIC DATA: Chest x-ray reveals no change. IMPRESSION: An 83-year-old with: 1. Mucus plugging of tracheostomy, with acute hypoxemic respiratory failure. 2. Bilateral pneumonia. 3. Encephalopathy. 4. Malnutrition. PLAN: 1. Continue current antibiotic regimen. 2. Consider tube feeds if an aggressive management strategy is the goal. 3. Prognosis is guarded. cc: MD Blayne Lao MD
[2019-04-13] MEDS: CLINIMIX E 4.25%-5% SOLUTION 1,000 ML IV SCH (02:36)
[2019-04-13] MEDS: DOXYCYCLINE 100 MG in NS 250 ML IV SCH ×2 (02:42→13:38)
[2019-04-13] MEDS: ALBUTEROL NEB INH SCH ×4 (03:12→22:41)
[2019-04-13] MEDS: LOVENOX SUBQ SCH (06:16)
[2019-04-13 06:33] LABS: BASO# 0.02 X1000 (0.0-0.2); BASO% 0.3 % (0.0-0.8); EOS# 0.48 X1000 (0.0-0.7); EOS% 7.1 % (0.0-10.0); HEMATOCRIT 43.6 % (42.0-52.0); HEMOGLOBIN 13.6 g/dL (14.0-18.0); IMM GRAN# 0.03 X1000 (0.0-0.04); IMM GRAN% 0.4 % (0.0-0.5); LYMPH# 0.54 X1000 (1.2-3.4); MCH 26.2 PG (27-31); MCHC 31.2 g/dL (33-37); MCV 83.8 FL (81-99); MONO# 0.52 X1000 (0.11-0.59); MONO% 7.7 % (1.7-9.3); MPV 10.9 FL (7.4-10.4); NEUT# 5.17 X1000 (1.4-6.5); NEUT% 76.5 % (42.2-75.2); PLT 186 X1000 (130-400); WBC 6.76 X1000 (4.8-10.8)
[2019-04-13 07:09] LABS: AGAP 10; ALKALINE PHOSPHATASE 58 U/L (32-122); BUN 18 mg/dL (8-22); CALCIUM 8.7 mg/dL (8.8-10.2); CHLORIDE 101 mmol/L (98-107); COSMO 278; CREATININE 0.7 mg/dL (0.7-1.2); ESTIMATED GFR > 60; GLUCOSE 103 mg/dL (70-104); GOT 27 U/L (10-34); GPT 19 U/L (10-44); POTASSIUM 3.9 mmol/L (3.5-5.1); SODIUM 138 mmol/L (136-145); TCO2 27 mmol/L (25-35); TOTAL BILIRUBIN 0.62 mg/dL (0.20-1.00); TOTAL PROTEIN 5.9 g/dL (6.3-8.3)
[2019-04-13 07:23] LABS: FREE T4 0.89 ng/dL (0.93-1.70)
[2019-04-13 07:41] LABS: TSH 32.91 uIUmL (0.27-4.20)
[2019-04-13] MEDS: BIDEX PO SCH ×5 (08:01→20:37)
[2019-04-13] MEDS: FLOMAX PO SCH ×2 (08:01→09:59)
[2019-04-13] MEDS: PRILOSEC PO SCH ×3 (08:02→20:36)
[2019-04-13] MEDS: SYNTHROID PO SCH ×2 (08:02→09:59)
[2019-04-13] MEDS: MUCOMYST 20% INH SCH ×2 (08:18→22:41)
--- NOTE | 2019-04-13 12:23 | PROGRESS NOTE ---
DATE: 04/13/2019 SUBJECTIVE: The patient was lying in the bed but when I came in, he actually opened his eyes, nodded, tried to mouth some words, and seemed to be getting much closer to his normal level of interaction. He has had no sedation now for a good 2 days plus and has finally come out of his stupor. I spoke at length with the nurse who was there in the room. OBJECTIVE: Vital Signs: 98.9, 94, 18, 98/65. Physical Examination: As stated in the history of present illness, the patient's sensorium seems to be coming around closer to his baseline. He obviously cannot talk without his laryngeal appliance but he certainly seemed to be responding appropriately. The patient's lungs are clear. Cardiovascular: Regular. Laboratory: White cell count was 6.6, hemoglobin was 13.6. BUN 18, creatinine 0.7. TSH was 32.9, free T4 was low at 0.89. ASSESSMENT AND PLAN: 1. Improvement in neurological status is noted. I can only chalk this up to overuse of sedatives. We should avoid those at all costs. 2. The patient has Staphylococcus aureus in his tracheostomy, as well as bilateral pneumonia. He continues on antibiotics. His white cell count is normal. 3. The patient is on Mucomyst for mucus plugging. I am also starting him on guaifenesin now that he is taking oral intake, or hopefully he will be able to take this. 4. The patient is on deep venous thrombosis prophylaxis. 5. We noted the patient's TSH and free T4 were out of whack today. That is a result of him not taking oral intake for multiple days. He is clearly hypothyroid at baseline. Hopefully, we can get oral medications and food intake improved, we can get this back into appropriate territory. 6. I will have my staff contact the patient's for an update. The last time that I spoke with the patient's , she was having phone trouble and her phone hung up on me multiple times over the course of several attempts to speak with her. Hopefully, that is improving as well. cc: Blayne Angel MD
--- NOTE | 2019-04-13 14:36 | NEUROLOGY PROGRESS NOTE ---
DATE: 04/13/2019 LOCATION: Room 207. SUBJECTIVE: Dr. Olguin saw Mr. Wing for Neurology consultation yesterday. History from his son at the bedside today is that the patient has not had significant baseline forgetfulness. Within the last year or longer, he has had irregular movements, jerking and twitching, and sometimes purposeful or semi-purposeful movements, which appear to occur only in sleep. This has been more prominent at some times than others. This does not appear when he is awake and alert. He has had markedly unsteady gait with a several falls. He fell and struck his head within the last few weeks, but there was not altered awareness. There is no history of brain trauma, stroke, other neurologic event. Mr. Wing presented this time with respiratory distress, and that has been managed. He received doses of sedating medicines and seemed obtunded. He has not received lorazepam in about 48 hours now. According to son, he is much, much more alert today. Pacemaker was placed recently. He has had throat cancer, requiring chronic tracheostomy, and he has some degenerative cervical spine problems, which son reports make it difficult for him to manage the tracheostomy without assistance from family. Son reports that the patient's mother had gait difficulty that was managed with intracranial shunt placement in the 1970s. Son does not remember the patient's mother having dementia. He believes that she was improved after the shunt placement. Home medicine list includes hydrocodone, and we do not have urine drug screen this admission. Chemistry has been unremarkable, except for elevated TSH and low free T4. I note Dr. Angel's comments regarding the thyroid on today's progress note. On exam, Mr. Wing appeared to be sleeping and was easily waked. He looked at me and mouthed some words, but did not communicate consistently. He did not follow commands. When he seemed to be sleeping, there was irregular, arrhythmic, rapid jerking movement involving the limbs, more in the arms than the legs, prominent and equal on the right and left, but not symmetric and not synchronous. EEG has been considered, and further plans will depend on his clinical course. Reported improvement in alertness is encouraging and is consistent with more time since the last lorazepam dose. I do not have any new thoughts or new suggestions today. I hope his level of consciousness will continue to improve. He has Neurology followup in [place] for the possibility of a movement disorder, cognitive impairment syndrome, multisystem atrophy. The movement is noted, but lack of cognitive impairment and the clinical timeframe outlined by son are not typical of Reji-Creutzfeldt. I do not think we need to do anything further from Neurology standpoint here. Thank you for asking Neurology to see Mr. Wing. cc: MD Blayne Campa III, MD [facility]PITALSherry
[2019-04-13] MEDS: ZOCOR PO SCH (20:37)
--- NOTE | 2019-04-13 21:55 | PULMONOLOGY PROGRESS NOTE ---
DATE: 04/13/2019 SUBJECTIVE: The patient was sleeping on arrival. He had no increased respiratory effort or work of breathing. He opens his eyes and attempts to speak when I come in the room, but it is not intelligible. OBJECTIVE: Vital Signs: The patient has been afebrile for the last 24 hours. Blood pressure 102/74, heart rate 95, oxygen saturation 95% on 40% FiO2. HEENT: Pupils are equal and reactive. Oropharynx appears dry but clear. Neck: Supple. Chest: Reveals occasional rhonchi bilaterally without significant wheezing. Cardiac exam: S1-S2. Abdomen: Soft. Extremities: Without edema. LABORATORIES: White blood count 6.76, hemoglobin 13.6, platelet count 186,000. Sodium 138, potassium 3.9, BUN 18, creatinine 0.7. TSH is elevated at 32.9. Free T4 is low at 0.89. IMPRESSION: An 83-year-old with: 1. Mucus plugging of the tracheostomy. 2. Bilateral pneumonia. 3. Encephalopathy with marginal improvement. 4. Malnutrition. 5. Hypothyroidism. PLAN: 1. Continue current antibiotic regimen. 2. Followup chest x-ray tomorrow. 3. Consider IV thyroid replacement if he is not taking p.o. in the next day or 2. cc: MD Blayne Lao MD
[2019-04-14] MEDS: CLINIMIX E 4.25%-5% SOLUTION 1,000 ML IV SCH ×2 (00:21→21:18)
[2019-04-14] MEDS: DOXYCYCLINE 100 MG in NS 250 ML IV SCH ×2 (00:21→12:22)
[2019-04-14] MEDS: ALBUTEROL NEB INH SCH ×4 (03:30→22:55)
[2019-04-14] MEDS: LOVENOX SUBQ SCH (05:53)
--- NOTE | 2019-04-14 06:38 | Diag Imaging Result Doc PS360 ---
CHEST-PORTABLE - 04/14/2019 INDICATION: abnormal exam COMPARISON: 04/12/2019 FINDINGS: Stable critically low lung volumes. Stable left-sided pacemaker. Stable cardiomegaly and pulmonary vascular congestion. There is slight worsening hazy infiltrate in the lung bases bilaterally, nonspecific. This could represent pulmonary edema, pneumonia, or increased atelectasis. IMPRESSION: Slight worsening from prior. Electronically signed by Ramana Meneses 04/14/2019 6:35 AM
[2019-04-14] MEDS: MUCOMYST 20% INH SCH ×2 (07:30→22:55)
[2019-04-14] MEDS: SYNTHROID PO SCH (09:27)
[2019-04-14] MEDS: PRILOSEC PO SCH ×2 (09:28→21:18)
[2019-04-14] MEDS: FLOMAX PO SCH (09:28)
--- NOTE | 2019-04-14 09:34 | PROGRESS NOTE ---
DATE: 04/14/2019 SUBJECTIVE: The patient is lying in the bed. He is awake, alert. He is responsive and mouths his answers, nods accordingly. In speaking with the patient, he seemed indicate that he was having difficulty raising his arms up to his mouth. I could not tell whether he was indicating that he had shoulder pain on that side or what. He is very difficult to understand. I am not sure that if he hand-wrote things that it would be much easier. OBJECTIVE: Vital Signs: 98.2, 83, 14, 132/87. HEENT: The patient has some dried crusted things around his mouth from previous oral care. Lungs: Clear. Cardiovascular: Regular. LABORATORY DATA: None were drawn today. IMAGING: There was a chest x-ray which is difficult to interpret because of low lung volumes and the fact that it was a bedside procedure. ASSESSMENT AND PLAN: 1. The patient's neurological status has improved greatly. A Neurology progress note indicated no further action was necessary at the present time. We will continue to observe. 2. Staphylococcus aureus in the tracheostomy is being treated with antibiotics. His chest x-ray is not really improved, but the low lung volumes make it difficult to interpret. 3. The patient was restarted on his thyroid medication yesterday. Some of the other medications that I had written for were not administered and I am not exactly sure why. 4. Deep venous thrombosis prophylaxis is in place. 5. My staff contacted the patient's yesterday with an update. cc: Blayne Angel MD
[2019-04-14] MEDS: ROBITUSSIN PO SCH ×2 (12:38→16:44)
--- NOTE | 2019-04-14 13:28 | NEUROLOGY PROGRESS NOTE ---
DATE: 04/14/2019 Mr. Wing is awake and alert, much more attentive, bright, even spontaneous with his interaction with me. I observed him moving his arms purposefully, using his hands to attempt to feed himself, but having trouble with that. He was able to mouth some words which I could understand. I do not have any new thoughts or new suggestions from Neurology standpoint today. He seems to be improving and I hope that will continue. He has Neurology followup in [place], and I believe there may already be some plans for workup there to look into the reasons for his unsteady gait and his possible movement disorder. Thanks for asking Neurology to see Mr. Wing. cc: MD Blayne Campa III, MD MTDD
--- NOTE | 2019-04-14 17:22 | PROVIDER DOCUMENTATION ---
This chart was entered by Yumiko Ferro Scribe, acting as scribe for Zack Enriquez MD. HPI-Respiratory General - General Chief Complaint: Shortness of Breath Stated Complaint: respiratory distress Time Seen by Provider: 04/05/19 15:35 Source: EMS Allergies/Adverse Reactions: Patient Allergies Allergy/AdvReac Type Severity Reaction Status Date / Time No Known Allergies Allergy Verified 03/31/19 09:50 Home Medications: Home Medication List Medication Instructions Recorded Confirmed Last Taken Type Levothyroxine Sodium [Tirosint] 75 mcg PO DAILY 08/11/12 04/07/19 11/23/14 07:00 History Metformin HCl [Metformin HCl ER] 500 mg PO BID 08/11/12 04/07/19 11/22/14 22:00 History Omeprazole 20 mg PO BID 08/11/12 04/07/19 11/23/14 07:00 History SIMVAstatin [Zocor] 40 mg PO QHS 08/11/12 04/07/19 11/22/14 22:00 History Hydrocodone/APAP 5 mg/325 mg 1 ea PO Q6H PRN PRN #12 tab 05/24/17 04/07/19 Unknown Rx [[place]-5] Mupirocin Ointment 15 gm TOP BID #1 tube 12/07/18 04/07/19 Unknown Rx Tamsulosin [Flomax] 1 cap PO DAILY 04/07/19 04/07/19 Unknown History - History of Present Illness-Resp Nature of Presenting Problem: Patient is a 83 year old male who presents to the ED via EMS with respiratory distress. EMS states they were unable to suction trach. EMS states patient was recently seen at [facility] for similar symptoms. Patient's O2 sat was 45% on arrival. Severity in ED: reports: severe Onset/Duration: reports: unsure Timing: reports: still present Similar Symptoms Previously?: Yes Recently seen or treated by another doctor?: Yes Review of Systems - Adult - REVIEW OF SYSTEMS - ADULT ROS:: unobtainable per condition Constitutional: reports: no symptoms reported Eyes: reports: no symptoms reported Ears, Nose, Mouth & Throat: reports: no symptoms reported Cardiovascular: reports: no symptoms reported Respiratory: reports: no symptoms reported Gastrointestinal: reports: no symptoms reported Genitourinary: reports: no symptoms reported Musculoskeletal: reports: no symptoms reported Integumentary: reports: no symptoms reported Neurological: reports: no symptoms reported Psychiatric: reports: no symptoms reported Endocrine: reports: no symptoms reported Hematologic/Lymphatic: reports: no symptoms reported Allergic/Immunologic: reports: no symptoms reported All Other Systems: Reviewed and Negative Past History - Adult - PAST MEDICAL HISTORY-ADULT Review of Records: reports: Old Records Reviewed, Nursing Assessment Review, Medications Reviewed, Social history reviewed & non-contributory. Major Childhood Illnesses: reports: denies history Cardiovascular: reports: HTN, pacemaker Respiratory: reports: denies history Gastrointestinal: reports: other (throat ca) Obstetrical/Gynecological: reports: denies history Genitourinary: reports: denies history Musculoskeletal: reports: denies history Neurological: reports: dementia Endocrine/Immune: reports: Diabetes, thyroid disorder Other Conditions: reports: denies history - PRIOR SURGERIES/PROCEDURES Surgical/Procedure History: reports: reviewed, not pertinent - IMMUNIZATION STATUS Childhood Immunizations: See Nurse Assessment Flu Vaccine: See Nurse Assessment - FAMILY HISTORY Family History: reviewed, not pertinent - SOCIAL HISTORY Smoking: cigarettes (former) Living Situation: family Physical Exam-General - PHYSICAL EXAM-ADULT Initial Vital Signs Reviewed: Yes - CONSTITUTIONAL General Appearance: severe distress, other (INITALLY UNRESPONSIVE) - HEAD, EARS, NOSE, MOUTH & THROAT HENMT: moist mucous membranes, other (HEALING LACERATION LEFT FOREHEAD) - NECK Neck: non-tender, other (trach stoma present. tracheal stoma is not red or swollen or infected or bleeding.) - RESPIRATORY Respiratory: respiratory distress (pt initially in respiratiory distress with difficulty/very poor ventilation of his large airway-trachea), stridor, decreased rate, other (little air movement bilaterally.) - CARDIOVASCULAR Cardiovascular: tachycardia - SKIN Integumentary: cyanosis (to face) - NEUROLOGIC Neurologic: other (unable to assess per patient's condition) - PSYCHIATRIC Psych/Mental Status: other (unable to assess per patient's condition) Progress - PLAN OF CARE/RESULTS Progress/Plan/Lab Results: Orders Category Date Time Status Admit - [facility] Routine AdmDCTranf 04/05/19 18:14 Active Activity - Up with Assistance ORDERED Care 04/05/19 18:14 Active Cardiac Monitoring DIRECTED Care 04/05/19 15:34 Completed Cardiac Monitoring DIRECTED Care 04/05/19 16:21 Completed Elevate Head of Bed DIRECTED Care 04/05/19 18:14 Active Encourage Fluids DIRECTED Care 04/05/19 18:14 Active FSBS/Accucheck Result AC + HS Care 04/05/19 18:14 Completed [place] Cath Insertion ORDERED Care 04/05/19 16:20 Completed Intake and Output-Strict Q 8-HR ASSESS Care 04/05/19 18:14 Active Notify MD of + Sepsis Screen NOW Care 04/05/19 16:21 Completed Notify Physician As Ordered Care 04/05/19 16:21 Active Nursing- Assist w/ IS as order ORDERED Care 04/05/19 18:16 Active Oxygen Therapy- ED Nursing DIRECTED Care 04/05/19 15:34 Completed Saline Loc NOW Care 04/05/19 15:34 Completed Turn, Cough and Deep Breathe Q2HR Care 04/05/19 18:14 Active Vital Signs Order Q 8-HR ASSESS Care 04/05/19 18:14 Completed Z-Document. for Tele Applied ORDERED Care 04/05/19 18:16 Completed Diabetic Diet Diet 04/05/19 18:15 Active CHEST-PORTABLE [RAD] Routine Exams 04/06/19 08:15 Completed CHEST-PORTABLE [RAD] Stat Exams 04/05/19 15:[address] HEAD W/O CONTRAST [CT] Stat Exams 04/05/19 15:57 Completed ABG [RESP] Routine Lab 04/05/19 15:45 Completed BLOOD CULTURE [BLDCUL] Stat Lab 04/05/19 16:45 Completed CBC WITH ELECTRONIC DIFF [HEME] Stat Lab 04/05/19 15:37 Completed CBC WITH NO DIFF [HEME] Routine Lab 04/06/19 06:07 Completed CK PROFILE [SP CHEM] Stat Lab 04/05/19 15:37 Completed COMPREHENSIVE METABOLIC PANEL [CHEM] Routine Lab 04/05/19 22:48 Completed COMPREHENSIVE METABOLIC PANEL [CHEM] Stat Lab 04/05/19 15:37 Completed LACTATE, PLASMA [CHEM] Lab 04/05/19 18:39 Completed LACTATE, PLASMA [CHEM] Lab 04/05/19 22:48 Completed LACTATE, PLASMA [CHEM] Q3H Lab 04/05/19 15:37 Completed PRO B-NATRIURETIC PEPTIDE Stat Lab 04/05/19 15:37 Completed PROTIME WITH INR [COAG] Stat Lab 04/05/19 15:37 Completed PTT [COAG] Stat Lab 04/05/19 15:37 Completed SPUTUM CULTURE WITH GRAM STAIN [RM] Routine Lab 04/04/19 23:48 Completed TROPONIN T HIGH SENSITIVITY Stat Lab 04/05/19 15:37 Completed URINALYSIS W/POSS RFLX CULT [URINALYSIS] Stat Lab 04/05/19 16:18 Completed 0.9% Sodium Chloride Inj [Ns] 1,000 ml Med 04/05/19 15:26 Discontinued .ROUTE As directed 0.9% Sodium Chloride Inj [Ns] 1,000 ml Med 04/05/19 18:30 Discontinued IV 75 mls/hr 0.9% Sodium Chloride Inj [Ns] 1,000 ml Med 04/05/19 16:53 Discontinued IV 999 mls/hr 0.9% Sodium Chloride Inj [Ns] 1,000 ml Med 04/05/19 18:07 Discontinued IV 999 mls/hr Acetaminophen [Tylenol] Med 04/05/19 18:16 Active 650 mg PO Q6H PRN PRN Albuterol 2.5MG/Ipratrop 0.5MG [Duoneb (A & A)] Med 04/05/19 15:39 Discontinued 3 ml INH NOW ONE Albuterol 2.5MG/Ipratrop 0.5MG [Duoneb (A & A)] Med 04/05/19 18:16 Discontinued 3 ml INH Q4H PRN PRN Aspirin Med 04/05/19 15:34 Discontinued 325 mg PO NOW ONE Doxycycline 100 mg Med 04/05/19 18:15 Discontinued 0.9% Sodium Chloride Inj [Ns] 250 ml IV Q12H Levofloxacin 750 mg/D5w [Levaquin 750 mg/D5w] Med 04/05/19 16:42 Discontinued 750 mg in 150 ml IV NOW Levofloxacin [Levaquin] Med 04/05/19 18:15 Discontinued 750 mg PO Q24H Ondansetron [Zofran] Med 04/05/19 18:16 Active 4 mg IV Q4-6H PRN PRN Aerosol Treatments Routine Ot 04/05/19 15:39 Completed Aerosol Treatments Routine Ot 04/05/19 18:17 Completed Aerosol Treatments Stat Oth 04/05/19 15:39 Completed Aerosol Treatments Stat Ot 04/05/19 18:17 Completed Incentive Spirometer Routine Ot 04/05/19 18:14 Completed Oxygen Device Stat Ot 04/05/19 16:21 Completed Pulse Oximetry Routine Oth 04/05/19 18:14 Completed EKG [EKG] Stat Ther 04/05/19 15:34 Draft Transfer/Admit Order [TRANSFER] Routine Transfer 04/05/19 18:17 Completed 1527 - Dr. Enriquez suctioned patient's trach with an yankauer and received copious amounts of secretions and a mucus concretion. After removal of secretions and concretion patient's systolic blood pressure improved from 65 to 125 and patient's O2 sat improved from 45% to 91%. Patient is still unable to answer q uestion currently. Patient's cyanosis improved. 1606 - Dr. Enriquez consulted with patient's about patient's current status. Patient's states patient is a full code. 1728 - Dr. Enriquez consulted with patient's . Patient's states patient can be admitted to [place]. Result Diagrams: 04/13/19 05:47 04/13/19 05:47 - REASSESSMENT Reassessment #1 Time Reassessed: 16:45 Status: improving (CONTINUES TO QUICKLY IMPROVE AFTER THE LARGE TRACHEAL MUCOUS PLUSG WAS REMOVED 15:27. MUCH MORE ALERT, SMILES AT PERSONEL, HEMODYNAMICALLY STABLE. NOTE CT EHAD W/O CHANGE AND CXR READ WITH BILAT INFILTRATES.) Reassessment #2 Time Reassessed: 17:31 Status: improving (PHONE CONVERSATION WITH ; PT IS FULL CODE AND AGREES FOR ADMISSION HERE AT [facility].) - EKG 1 Time of EKG reading by physician:: 15:45 EKG Read and Signed by:: Zack Enriquez EKG Interpretation (*Must complete 3 of following elements*): Abnormal Rate: 115 Rhythm: ventricular-paced rhythm with occassional sinus complexes [place]: normal Comments: abnormal ECG - XRAY 1 XRAY Study: Chest Impression: See EMR Report (EXAM: CHEST-PORTABLE HISTORY: respiratory distress TECHNIQUE: Single view COMPARISON: 05/24/2017 FINDINGS: Poor inspiratory effort. There are increased interstitial markings throughout both lungs. The heart is mildly prominent. There is a left-sided pacemaker on the current exam. No pleural effusions identified. IMPRESSION: Bilateral infiltrates Electronically signed by Tj Vela 04/05/2019 3:57 PM 04/05/19 1557 Interpreting Physician: Tj Vela MD Dictated Date/Time: 04/05/19 1556 cc: Zack Enriquez MD;) - CONSULTS/PCP/HOSPITALIST Notification #1 *Consult/PCP/Hospitalist*: Dr. Leblanc Time Discussed: 15:30 Reason/Comments: Dr. Enriquez consulted with Dr. Leblanc about patient. Procedures - ADDITIONAL PROCEDURES Additional Procedure: OTHER (ON PRESENTATION, PT WITH P OX 41, SYST 65/ AND DISPLAYING DIFFICULTY VENTILATING HIMSELF WITH ONGOING RESPIRATIORY EFFORT BUT MINIMAL AIRFLOW THRU TRACHEAL STOMA. I ATTEMPTED TO SUCTION TRACHEA WITH FL EXIBLE CATHETER BUT WITH LITTLE RESULTS. A #5 UNCUFFED ET TUBE WAS EASILY PLACED IWTH FOGGING AND AIRMOVEMENTBUT FELT TO BE INADEQUATE IN SIZE AND MIGHT NOT BE BRIDGING ALL THE OBSTRUCTION. ET TUBE REMOVED AND SALINE LAVAGE THEN YANKER'S SUCTION REMOVED A LARGE AMOUNT OF MUCOID SECTIONS AND LOTS OF COUGHING EFFORT. YANKER'S WAS REPEATED A HARD MUCOID PLUG PRESENTED IT'S SELF BUT WAS DIFFICULT TO REMOVE FROM THE TRACHEA. THIS LARGE PLUG WAS REMOVED BY USE OF THE YANKER'S AND A 4X4 GUAZE GREATLY IMPROVING VENTILATION. P OXIGENATION QUICKLY CALEB TO 70s, 80s AND TO 91. BP JUSP) Departure - Departure Date of Disposition Decision: 04/05/19 Time of Disposition Decision: 15:30 DIAGNOSIS: Respiratory distress, acute, Multiple tracheobronchial mucus plugs, Pulmonary infiltrate on chest x-ray Hematuria Qualifiers: Hematuria type: unspecified type Qualified Code(s): R31.9 - Hematuria, unspecified Disposition: ADMITTED INPATIENT 09 Certified Medical Emergency: Emergent Condition: Stable - Critical Care Note This patient required my direct & personal management of CC.: No Attestation - Physician/ SHAYNE Attestation The physician spent face to face time with patient:: Yes Advanced Practice Provider documentation review:: Supervising physician onsite and consulted in the evaluation and care of this patient. The physician did have a face to face encounter with the patient. This chart was documented by the indicated scribe, (Yumiko Ferro Scribe) and accurately reflects the services I performed and decisions made by me, Zack Enriquez MD, as attested by the provider's signature.
[2019-04-14] MEDS: ZOCOR PO SCH (21:18)
--- NOTE | 2019-04-14 23:50 | PULMONOLOGY PROGRESS NOTE ---
DATE: 04/14/2019 SUBJECTIVE: The patient is awake and alert. He follows commands. Mental status continues to improve. OBJECTIVE: Vital Signs: The patient has been afebrile for the last 24 hours. Blood pressure 102/59, heart rate 95, respiratory rate 20, oxygen saturation 93% on 40% FiO2. HEENT: Pupils are equal and reactive. Oropharynx appears clear. Neck: Supple. Chest: Reveals occasional crackles bilaterally. Cardiac: S1-S2. Abdomen: Soft. Extremities: Without edema. LABORATORIES: Chest x-ray reveals shallow inspiration with mild increased markings in the lung bases. IMPRESSION: An 83-year-old with: 1. Bibasilar pneumonia. 2. Encephalopathy with continued improvement. 3. Hypothyroidism. 4. Malnutrition. 5. Mucus plugging of a tracheostomy. 6. Status post tracheal diversion and laryngectomy. PLAN: 1. Continue current antibiotic regimen. 2. Anticipate the need for a rehabilitation stay. cc: MD Blayne Lao MD
[2019-04-15] MEDS: ALBUTEROL NEB INH SCH ×5 (03:40→23:05)
[2019-04-15] MEDS: LOVENOX SUBQ SCH (06:18)
[2019-04-15] MEDS: MUCOMYST 20% INH SCH ×2 (07:42→23:05)
[2019-04-15] MEDS: SYNTHROID PO SCH (08:28)
[2019-04-15] MEDS: FLOMAX PO SCH (08:29)
[2019-04-15] MEDS: PRILOSEC PO SCH ×3 (08:29→22:28)
[2019-04-15] MEDS: ROBITUSSIN PO SCH ×3 (08:35→18:09)
[2019-04-15] MEDS: DOXYCYCLINE 100 MG in NS 250 ML IV SCH ×2 (08:35→21:49)
[2019-04-15] MEDS ORDERED: NS 500 ML IV ONE (09:33)
--- NOTE | 2019-04-15 10:40 | PROGRESS NOTE ---
DATE: 04/15/2019 SUBJECTIVE: The patient is asleep in the bed. He is in a fairly deep sleep. I spoke with the nurse and they just had him up only 30 minutes ago and he did swallow his medications. He is not really keen on any type of food intake and has had very little p.o. intake over the last couple days. He does have Clinimix going. OBJECTIVE: Vital Signs: Temperature maximum 99.8 degrees, temperature now 99.1; pulse rate 96, respiratory rate 18, blood pressure 113/78, and 96% saturated on trach, warm humidified trach collar. Lungs: On physical exam, the patient's lungs are clear. Cardiovascular: Regular. He is bordering on tachycardia, but I agree with the reading of 96. Neurologic: The patient is twitching as he sleeps. He just will respond to stimulation, but did not seem intent on waking up. This is a little different from the previous days' interactions with the patient. LABORATORY: No laboratory was drawn today. ASSESSMENT AND PLAN: 1. The patient's neurological status was improved over the last 2 days. He is a bit sleepy today. We will have to check and make sure that he did not receive any sedation. If so, we will discontinue, and I will again inform the nursing staff that should be avoided at all costs. 2. The patient has Staphylococcus aureus in his tracheostomy and is being treated with intravenous antibiotics. Pulmonary is following. Chest x-rays have not been impressive, but the lung volumes are very low. 3. The patient has been restarted on his thyroid medication yesterday. I do not see any significant change in his thyroid numbers at the present, but we will recheck those at some point down the road. 4. Deep venous thrombosis prophylaxis in place. 5. We will continue our efforts at physical therapy. I have instructed the nursing staff to spend extensive time with him trying to get him to eat and to try and get him into the chair. He needs to be stimulated as much as possible. I have asked for the dietitian to have a consult. 6. I have asked speech therapy to come and see the patient's and see if he could be outfitted with a voice device or buzzer so that he can at least have some degree of communication with us. 7. It is clear that the patient will have to go to some type of rehabilitation situation at some point if he ever has any chance of returning home. By the nursing accounts and in conversation with him, he requires quite a bit of care and is still appropriate for the step- down unit as a result. cc: Blayne Angel MD
[2019-04-15] MEDS: CLINIMIX E 4.25%-5% SOLUTION 1,000 ML IV SCH ×2 (11:36→16:59)
[2019-04-15] MEDS: MYCOSTATIN SUSP PO SCH ×2 (18:09→21:49)
--- NOTE | 2019-04-15 18:59 | PROVIDER PROGRESS NOTE ---
Progress Note Dr. Lowry Progress Note/Pulmonary and or critical care We appreciated progress of care, Complications, change in diagnosis, and instructions to patient. Subjective: We note the level of consciousness, bed (chair) position, family presence (if any), level of lethargy, feeling of symptoms, and changes from baseline condition/symptom. The patient appears asleep with eyes closed. No acute distress noted. He is on Trach collar 40%. He does not open his eyes when his name is called. Upper ext remity tremor noted. No family at the bedside. Objective: Vital Signs: We reviewed EMR current values for Pulse rate, Blood pressure, Pulse rate, respiratory rate and Pulse oximetry. Also noted other values and trends if present (e.g. I/O, CVP). T 99.1 , IN 86, RR 15, BP 113/85 and SaO2 97% on Trach Collar 40%. Physical Examination: General: Lying in bed with no acute distress noted. HEENT: Normocephalic. Tracheostomy in place. Mucosa pink and moist. Poor dentition. Respiratory: Even and unlabored. On trach collar. Symmetrical excursion. Diminished breathing sounds bilaterally. CVS: Irregularly irregular. S1 and S2 with murmur and occasional extra heart sound. Abdomen: soft. Nontender. Nondistended. Bowel sounds present. Extremities: No pedal edema. Some erythema on left leg with some healing scratches. Neuro: Resting with eyes closed, but not answering questions or following commands. Labs and Radiology: Reviewed available labs and radiology values available at time of EMR review. (Dina Deng) Assessment: Acute hypoxemic respiratory failure. Bilateral pneumonia. Sputum culture positive for Staphylococcus Aureus resistant to oxacillin and penicillin-G. Mucus plugging of trachea on presentation. Improved. Delirium with dementia. Plan: Continue current treatment and supportive care per admitting and other teams on the case. Antibiotic (Doxycycline and Levaquin). Bronchodilators. Mucomyst. Oxygen titrated to patients needs per clinical protocols. Appropriate DVT and GI prophylaxis Input was appreciated from Admitting MD and other teams on the case. Evaluation time in minutes: 32 minutes. (Lacie Lowry I.)
--- NOTE | 2019-04-15 19:13 | NEUROLOGY PROGRESS NOTE ---
DATE: 04/15/2019 Mr. Wing has not had any major changes. Family member at the bedside reports he seemed brighter when awake this morning. At the time of my visit, he was dozing. I did observe some irregular random twitching movement in the arms. This was most consistent with myoclonus. He has neurology followup in [place]. I do not have any new suggestions for inpatient management from neurology standpoint here. Thanks for asking us to see Mr. Wing. cc: MD Blayne Campa III, MD MTDD
--- NOTE | 2019-04-15 21:28 | PROGRESS NOTE ---
DATE: 04/15/2019 We appreciated progress of care complications, change in diagnosis and instructions to patient. SUBJECTIVE: We note the level of consciousness, bed/chair position, family presence if any, level of lethargy, feelings of symptoms and changes from baseline condition/symptom. This is an 83-year- old male lying in bed, trach intact with high-flow O2 in no acute distress at the present time, resting well. He is sleeping. No family member at bedside. OBJECTIVE: Vital Signs: Blood pressure 113/85, temperature 99.1, pulse rate 93, respiratory rate 15, O2 saturation 96. Trach collar in place with high-flow O2. General: Lying in bed with no acute distress noted. HEENT: Normocephalic, atraumatic. Trachea midline. Mucosa moist. Respiratory: Decreased entry bilaterally. Cardiovascular: Regular rate and rhythm. S1, S2 auscultated. Extremities: No peripheral edema. Abdomen: Soft, nontender, nondistended. Neurologic: He is sleeping, arousable. LABORATORY: White blood cells 6.76. Red blood cells 5.20. Hemoglobin 13.6. Hematocrit 43.6. MCV 83.8. MCH 26.2. MCHC 31.2. RDW 15.0. Platelet count 186. MPV 10.9. Sodium 138. Potassium 3.9. Chloride 101. Carbon dioxide 27. Anion gap 10. BUN 18. Creatinine 0.7. Glucose 103. Calcium 8.7. AST 27. ALT 19. Total protein 5.9. Albumin 3.0. TSH 32.91. Free T4 of 0.89. Management, [id number] evaluation completed by Dr. Lowry. LACI did scribing only. [*] ASSESSMENT: 1. Respiratory failure. 2. Bilateral pneumonia. 3. Delirium with dementia. 4. Mucus plugging. PLAN: Continue high-flow O2. Continue bronchodilators. Continue DVT prophylaxis with Lovenox 40 mg subcutaneous daily. Continue GI prophylaxis with Prilosec 20 mg p.o. b.i.d. schedule. Continue Zofran 4 mg IV every 4-6 hours p.r.n. for nausea. Input was appreciated from admitting MD and other teams on the case. EVALUATION TIME IN MINUTES: 33 minutes. Dictated by LACI Holbrook for Lacie Lowry MD cc: LACI Holbrook MD Timothy P. Weirich, MD
[2019-04-15] MEDS: ZOCOR PO SCH ×2 (21:50→22:28)
[2019-04-16] MEDS: ALBUTEROL NEB INH SCH ×4 (04:10→20:01)
[2019-04-16] MEDS: LOVENOX SUBQ SCH (06:14)
[2019-04-16 06:32] LABS: BASO# 0.02 X1000 (0.0-0.2); BASO% 0.4 % (0.0-0.8); EOS# 0.46 X1000 (0.0-0.7); EOS% 8.2 % (0.0-10.0); HEMOGLOBIN 13.1 g/dL (14.0-18.0); LYMPH% 10.8 % (20.5-51.1); MCHC 31.2 g/dL (33-37); MCV 83.5 FL (81-99); MONO# 0.45 X1000 (0.11-0.59); MONO% 8.1 % (1.7-9.3); MPV 11.4 FL (7.4-10.4); NEUT# 4.05 X1000 (1.4-6.5); NEUT% 72.5 % (42.2-75.2); PLT 197 X1000 (130-400); RBC 5.03 XMIL (4.7-6.1); RDW 15.3 % (11.5-14.5); WBC 5.58 X1000 (4.8-10.8)
--- NOTE | 2019-04-16 07:00 | Diag Imaging Result Doc PS360 ---
EXAM: CHEST-1 VIEW HISTORY: SOB TECHNIQUE: Single view COMPARISON: 04/14/2019 FINDINGS: Mildly improved expansion of lungs. Heart isn't enlarged. Decreased pulmonary edema/infiltrates. 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 No pleural effusions identified. IMPRESSION: Interval improvement Electronically signed by Tj Vela 04/16/2019 6:58 AM
[2019-04-16 07:10] LABS: AGAP 11; BUN 22 mg/dL (8-22); CALCIUM 8.5 mg/dL (8.8-10.2); CHLORIDE 103 mmol/L (98-107); COSMO 284; CREATININE 0.8 mg/dL (0.7-1.2); ESTIMATED GFR > 60; GLUCOSE 117 mg/dL (70-104); POTASSIUM 4.4 mmol/L (3.5-5.1); SODIUM 140 mmol/L (136-145); TCO2 26 mmol/L (25-35)
[2019-04-16] MEDS: MUCOMYST 20% INH SCH ×2 (08:33→19:56)
[2019-04-16] MEDS: DOXYCYCLINE 100 MG in NS 250 ML IV SCH ×2 (09:23→22:00)
[2019-04-16] MEDS: PRILOSEC PO SCH ×2 (09:27→21:41)
[2019-04-16] MEDS: MYCOSTATIN SUSP PO SCH ×3 (09:27→17:11)
[2019-04-16] MEDS: FLOMAX PO SCH (09:27)
[2019-04-16] MEDS: SYNTHROID PO SCH (09:27)
[2019-04-16] MEDS: ROBITUSSIN PO SCH ×3 (09:27→17:11)
[2019-04-16] MEDS: CLINIMIX E 4.25%-5% SOLUTION 1,000 ML IV SCH (14:49)
--- NOTE | 2019-04-16 15:32 | PROVIDER PROGRESS NOTE ---
Progress Note Dr. Lowry Progress Note/Pulmonary and or critical care We appreciated progress of care, Complications, change in diagnosis, and instructions to patient. Subjective: We note the level of consciousness, bed (chair) position, family presence (if any), level of lethargy, feeling of symptoms, and changes from baseline condition/symptom. The patient appears asleep with eyes closed. No acute distress noted. He is on Trach collar 40%. He does not open his eyes when his name is called. Upper ext remity tremor noted. No family at the bedside. Objective: Vital Signs: We reviewed EMR current values for Pulse rate, Blood pressure, Pulse rate, respiratory rate and Pulse oximetry. Also noted other values and trends if present (e.g. I/O, CVP). T 98.7 , CA 84, RR 18, BP 122/78 and SaO2 96% on Trach Collar 8%. Physical Examination: General: Lying in bed with no acute distress noted. HEENT: Normocephalic. Tracheostomy in place. Mucosa pink and moist. Poor dentition. Respiratory: Even and unlabored. On trach collar. Symmetrical excursion. Diminished breathing sounds bilaterally. CVS: Irregularly irregular. S1 and S2 with murmur and occasional extra heart sound. Abdomen: soft. Nontender. Nondistended. Bowel sounds present. Extremities: No pedal edema. Some erythema on left leg with some healing scratches. Neuro: Lethargic, resting with eyes closed, but not answering questions or following commands. Management, face to face evaluation by Dr. Lowry. LACI Holbrook did scribing only. Labs and Radiology: Reviewed available labs and radiology values available at time of EMR review. Laboratory Results 04/16/19 04/16/19 05:53 05:53 WBC 5.58 RBC 5.03 Hgb 13.1 L Hct 42.0 MCV 83.5 MCH 26.0 L MCHC 31.2 L RDW Std Deviation 15.3 H Plt Count 197 MPV 11.4 H Immature Gran % (Auto) 0.0 Neut % (Auto) 72.5 Lymph % (Auto) 10.8 L Forest % (Auto) 8.1 Eos % (Auto) 8.2 Baso % (Auto) 0.4 Immature Gran # (Auto) 0.00 Neut # (Auto) 4.05 Lymph # (Auto) 0.60 L [place] # (Auto) 0.45 Eos # (Auto) 0.46 Baso # (Auto) 0.02 Sodium 140 Potassium 4.4 Chloride 103 Carbon Dioxide 26 Anion Gap 11 BUN 22 Creatinine 0.8 Estimated GFR/1.73 m2 > 60 BUN/Creatinine Ratio 28 Glucose 117 H Calculated Osmolality 284 Calcium 8.5 L Assessment: Acute hypoxemic respiratory failure. Bilateral pneumonia. Sputum culture positive for Staphylococcus Aureus resistant to oxacillin and penicillin-G. Mucus plugging of trachea on presentation. Improved. Delirium with dementia. Bed bound. Plan: Continue current treatment and supportive care per admitting and other teams on the case. Antibiotic (Doxycycline and Levaquin). Bronchodilators. Mucomyst. Oxygen titrated to patients needs per clinical protocols. Appropriate DVT and GI prophylaxis Input was appreciated from Admitting MD and other teams on the case. Evaluation time in minutes: 33 minutes.
--- NOTE | 2019-04-16 16:49 | PROGRESS NOTE ---
DATE: 04/16/2019 SUBJECTIVE: The patient's chart was reviewed. In summary, patient was admitted on 04/05/2019 with acute respiratory failure secondary to mucus plugging. While hospitalized patient has had multiple additional episodes. He is currently being followed with Pulmonary Medicine secondary to mucus plugging and possible pneumonia. A sputum culture revealed MRSA from 04/05/2019 . Additionally patient is profoundly weak. He has had mental status changes requiring neurology consultation. This afternoon patient is very interactive. He is communicating with mouthing words. The patient is frustrated that he is unable to get out of bed despite coaching that he is too weak. He asked to go home. Two nurses are at bedside at present time. Overnight there has been no evidence of fevers, chills, nausea, vomiting, shortness of breath or chest discomfort. P.o. intake is has improved, but remains marginal. OBJECTIVE: T-max 99 degrees, heart rate 74 to 90, respirations 12 to 20, blood pressure 100 to 122 over 66 to 85.General: Chronically ill appearing, no acute distress. Cardiovascular: Regular rate and rhythm. No significant murmurs, rubs, or gallops. Pulmonary: Clear to auscultation anteriorly. Abdomen: Soft, nontender, nondistended. Positive bowel sounds. Extremities: Moves all extremities well. No significant clubbing, cyanosis, or edema. There are several areas of ulceration. Dermatologic: Evaluation revealed ulcerations to the bilateral shins secondary to trauma. LABORATORY DATA: White blood cell count 5.50, hemoglobin 13.1, hematocrit 42.0, platelet count 197,000. Sodium 140, potassium 4.4, chloride 103, bicarb 26, BUN 22, creatinine 0.8, glucose 117, calcium 8.5. ASSESSMENT AND PLAN: 1. Alteration of mental status/metabolic encephalopathy-at present time, patient is conversing by mouthing words. He is convinced he can rise to a standing position. With extensive coaching, his agitation decreased. I appreciate Dr. Cook's consultation. At this point, we will continue supportive care as his mental status is slowly improving. 2. Methicillin-resistant Staphylococcus aureus pneumonia-the question is raised whether this is simply from the tracheostomy site or if this is a true pneumonia. Chest x-ray is acceptable. We will continue doxycycline per pulmonary medicine. We will encourage deep breathing and aggressive pulmonary care. 3. Protein calorie malnutrition-patient is currently being treated with Clinimix. His p.o. intake has improved, although not to goal over the last several days. We will continue to encourage increasing p.o. intake. 4. Profound weakness. The patient is being treated with physical therapy. We will continue this. He likely will require rehabilitation at time of discharge. 5. Hypothyroidism-we will continue patient on replacement. 6. Prophylaxis-we will continue patient on Lovenox therapy. 7. Disposition-at this point, patient continues to require detention care in a hospital setting. We will plan discharge home once appropriate. cc: MD Blayne Pool MD
[2019-04-16] MEDS: ZOCOR PO SCH (21:41)
[2019-04-17] MEDS: MYCOSTATIN SUSP PO SCH ×5 (00:10→20:46)
[2019-04-17] MEDS: PRILOSEC PO SCH ×3 (00:12→20:46)
[2019-04-17] MEDS: ZOCOR PO SCH ×2 (00:12→20:46)
[2019-04-17] MEDS: ALBUTEROL NEB INH SCH ×4 (03:44→20:00)
[2019-04-17] MEDS: LOVENOX SUBQ SCH (07:55)
[2019-04-17] MEDS: MUCOMYST 20% INH SCH ×2 (08:27→19:45)
[2019-04-17] MEDS: CLINIMIX E 4.25%-5% SOLUTION 1,000 ML IV SCH ×2 (08:37→20:46)
[2019-04-17] MEDS: DOXYCYCLINE 100 MG in NS 250 ML IV SCH ×2 (09:18→20:46)
[2019-04-17] MEDS: SYNTHROID PO SCH (09:25)
[2019-04-17] MEDS: FLOMAX PO SCH (09:25)
[2019-04-17] MEDS: ROBITUSSIN PO SCH ×3 (09:25→18:17)
--- NOTE | 2019-04-17 15:29 | PROGRESS NOTE ---
DATE: 04/17/2019 SUBJECTIVE: Events over the last 24 hours were reviewed. In summary, patient's condition is largely unchanged. He continues to require frequent suctioning with respiratory therapy. Mental status continues to wax and wane. P.o. intake is minimal, but slightly improved from previous. There has been no evidence of fevers, chills, nausea, or vomiting. He continues to demonstrate considerable overall weakness. OBJECTIVE: T-max 99.3 degrees, heart rate 84 to 96, respirations 17 to 31, blood pressure 99- 114/65-80. General: Chronically ill-appearing. No acute distress. Cardiovascular: Regular rate and rhythm. No significant murmurs, rubs, or gallops. Pulmonary: Clear to auscultation anteriorly. Abdomen: Soft, nontender, nondistended. Positive bowel sounds. Extremities: No significant clubbing, cyanosis, or edema. Dermatologic: Evaluation reveals several excoriations, but no significant rash. Laboratory Data: None. ASSESSMENT AND PLAN: 1. Alteration of mental status/metabolic encephalopathy-the patient continues to have episodes of confusion. Today, he is mouthing words appropriately. He states he is feeling reasonably well. For now, we will continue supportive care. I appreciate Dr. Cook's consultation. His mental status change is likely multifactorial. 2. Methicillin-resistant Staphylococcus aureus pneumonia-question is raised whether this was simply from the tracheostomy site or if this is a true pneumonia. Chest x-ray recently returned acceptable. For now, we will continue doxycycline therapy and aspiration precautions. We will encourage deep breathing as well as aggressive respiratory care. 3. Protein calorie malnutrition-the patient is being treated with Clinimix. Oral intake is marginal, but slightly improved. We will continue to encourage by mouth intake. 4. Profound weakness-the patient is currently being treated with physical therapy. Despite this, he continues to demonstrate considerable weakness. He likely will require rehabilitation at the time of discharge. 5. Hypothyroidism-we will continue patient on thyroid replacement. 6. Prophylaxis-patient will be continued on Lovenox therapy. 7. Disposition-at this point, patient continues to require detention care in a hospital setting. We will plan discharge to rehabilitation once appropriate. cc: MD Blayne Pool MD
--- NOTE | 2019-04-17 18:13 | PROVIDER PROGRESS NOTE ---
Progress Note Progress Note Dr. Lowry Progress Note/Pulmonary and or critical care We appreciated progress of care, Complications, change in diagnosis, and instructions to patient. Subjective: We note the level of consciousness, bed (chair) position, family presence (if any), level of lethargy, feeling of symptoms, and changes from baseline condition/symptom. The patient appears asleep with eyes closed. No acute distress noted. He is on Trach collar 40%. He does not open his eyes when his name is called. Upper extremity tremor noted. No family at the bedside. Objective: Vital Signs: We reviewed EMR current values for Pulse rate, Blood pressure, Pulse rate, respiratory rate and Pulse oximetry. Also noted other values and trends if present (e.g. I/O, CVP). T 97.2 , OH 92 , RR 18 , BP 115/77 and SaO2 95 5 on Trach Collar 10%. Physical Examination: General: Lying in bed with no acute distress noted. HEENT: Normocephalic. Tracheostomy in place. Mucosa pink and moist. Poor dentition. Respiratory: Even and unlabored. On trach collar. Symmetrical excursion. Diminished breathing sounds bilaterally. CVS: Irregularly irregular. S1 and S2 with murmur and occasional extra heart sound. Abdomen: soft. Nontender. Nondistended. Bowel sounds present. Extremities: No pedal edema. Some erythema on left leg with some healing scratches. Neuro: Lethargic, resting with eyes closed, but not answering questions or following commands. Management, face to face evaluation by Dr. Lowry. LACI Holbrook did scribing only Laboratory: WBC- 5.58 RBC- 5.03 Hgb- 13.1 Hct- 42.0 Na- 140 K+- 4.4 Chloride-103 Carbon dioxide-26 Glucose- 117 Assessment: Acute hypoxemic respiratory failure. Bilateral pneumonia. Sputum culture positive for Staphylococcus Aureus resistant to oxacillin and penicillin-G. Mucus plugging of trachea on presentation. Improved. Delirium with dementia. Plan: Continue current treatment and supportive care per admitting and other teams on the case. Antibiotic (Doxycycline and Levaquin). Bronchodilators. Mucomyst. Oxygen titrated to patients needs per clinical protocols. Appropriate DVT and GI prophylaxis Input was appreciated from Admitting MD and other teams on the case. Evaluation time in minutes: 31 minutes.
[2019-04-18] MEDS: ALBUTEROL NEB INH SCH ×4 (03:58→23:14)
[2019-04-18] MEDS: LOVENOX SUBQ SCH (05:24)
[2019-04-18 06:47] LABS: BASO# 0.02 X1000 (0.0-0.2); BASO% 0.3 % (0.0-0.8); EOS# 0.44 X1000 (0.0-0.7); HEMATOCRIT 43.3 % (42.0-52.0); HEMOGLOBIN 13.4 g/dL (14.0-18.0); IMM GRAN# 0.05 X1000 (0.0-0.04); IMM GRAN% 0.7 % (0.0-0.5); LYMPH# 0.57 X1000 (1.2-3.4); LYMPH% 7.8 % (20.5-51.1); MCH 25.8 PG (27-31); MCHC 30.9 g/dL (33-37); MCV 83.4 FL (81-99); MONO# 0.54 X1000 (0.11-0.59); MONO% 7.4 % (1.7-9.3); MPV 11.9 FL (7.4-10.4); NEUT# 5.72 X1000 (1.4-6.5); NEUT% 77.8 % (42.2-75.2); PLT 224 X1000 (130-400); RBC 5.19 XMIL (4.7-6.1); RDW 15.1 % (11.5-14.5); WBC 7.34 X1000 (4.8-10.8)
[2019-04-18 07:25] LABS: AGAP 12; ALBUMIN 3.1 g/dL (3.5-5.0); ALKALINE PHOSPHATASE 65 U/L (32-122); BUN 20 mg/dL (8-22); CALCIUM 8.6 mg/dL (8.8-10.2); CHLORIDE 101 mmol/L (98-107); COSMO 284; CREATININE 0.8 mg/dL (0.7-1.2); ESTIMATED GFR > 60; GLUCOSE 134 mg/dL (70-104); GOT 70 U/L (10-34); GPT 42 U/L (10-44); POTASSIUM 4.4 mmol/L (3.5-5.1); SODIUM 140 mmol/L (136-145); TCO2 27 mmol/L (25-35); TOTAL PROTEIN 6.3 g/dL (6.3-8.3)
--- NOTE | 2019-04-18 07:28 | Diag Imaging Result Doc PS360 ---
CHEST-1 VIEW - 04/18/2019 INDICATION: SOB COMPARISON: 04/16/2019 FINDINGS: Stable severely low lung volumes. Stable left-sided pacemaker. Stable cardiomegaly and pulmonary vascular congestion. No infiltrates or definite edema. No significant pleural effusion. IMPRESSION: Cardiomegaly and pulmonary vascular congestion. Electronically signed by Ramana Meneses 04/18/2019 7:26 AM
[2019-04-18] MEDS: DOXYCYCLINE 100 MG in NS 250 ML IV SCH (08:53)
[2019-04-18] MEDS: MYCOSTATIN SUSP PO SCH ×4 (08:54→21:41)
[2019-04-18] MEDS: SYNTHROID PO SCH (08:54)
[2019-04-18] MEDS: PRILOSEC PO SCH ×2 (08:54→21:40)
[2019-04-18] MEDS: ROBITUSSIN PO SCH ×3 (08:54→16:22)
[2019-04-18] MEDS: FLOMAX PO SCH (08:54)
[2019-04-18] MEDS: MUCOMYST 20% INH SCH ×2 (09:59→23:13)
--- NOTE | 2019-04-18 10:32 | Diag Imaging Result Doc PS360 ---
EXAM: NECK AP AND/OR LAT SOFT TISSUE INDICATION: DETERMINE PRESENCE OF TEP PROSTHESIS TECHNIQUE: 2 views COMPARISON: None. FINDINGS: There are multiple metallic surgical clips seen throughout the neck soft tissues. The upper airway appears to be patent. There is a circular structure projecting over the trachea near the thoracic inlet on the AP view which probably represents the valve of the tracheoesophageal prosthesis. There is extensive cervical spine degenerative arthropathy. 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 Electronically signed by Alex Campbell 04/18/2019 10:29 AM
[2019-04-18] MEDS: CLINIMIX E 4.25%-5% SOLUTION 1,000 ML IV SCH (16:22)
--- NOTE | 2019-04-18 16:38 | PROGRESS NOTE ---
DATE: 04/18/2019 SUBJECTIVE: The patient is asleep in bed. He is easily aroused. He tries to mouth words. He is difficult to understand or comprehend. His daughters at the bedside. They are the 1st family member I have seen throughout his entire hospitalization. We spoke at length about his ongoing problems and struggles and other issues concerning home life. OBJECTIVE: Vital Signs: 98.8, 86, 18, 106/78. General: The patient was asleep in bed. His tracheostomy collar was on the side of his neck and not providing any significant oxygenation or humidity. This was readjusted. The patient was easily aroused. As he was sleeping he was jerking but this stopped as soon as he was aroused. He was able to move his legs in the bed. Lungs: Clear. Cardiovascular: Regular. Extremities: Show some excoriation on the legs. These have been covered with some type of plastic wrap by the nursing staff. LABORATORY: White blood cell count 7.3, hematocrit 43.3, BUN 20, creatinine 0.8, AST slightly elevated at 70, albumin 3.1. ASSESSMENT AND PLAN: 1. The patient's mental status is approximately unchanged. His daughter wonders if he had some hypoxemic event or stroke. I assure that we had a CT scan and although MRI was a possibility I do not think we can do that without sedation. 2. The patient has methicillin-resistant Staphylococcus aureus in his tracheostomy. Bilateral pneumonias per x-ray, he is followed by Dr. Richards. He is on antibiotics. 3. The patient is on Clinimix for nutrition. He eats better when somebody stands there to feed him and I have asked the nursing staff to undertake this. For the next several days his daughter will be present. I encouraged her to also try and feed him. 4. The patient has continued weakness and is not really doing well with physical therapy. The last note stated that he fell asleep while they were trying to do physical therapy. 5. The patient's hypothyroidism is being treated with p.o. thyroid replacement. 6. Deep venous thrombosis prophylaxis with Lovenox therapy. 7. Dietary. Dietitian has been consulted. 8. I spoke with speech therapy this morning and they were going to do an evaluation of his tracheostomy and do a cross-table lateral soft tissue of the neck just to look and see if his prosthesis was still in place. When I last look I could not find the prosthesis. Further options will be per the recommendations of the speech therapy team. 9. The patient still requires a considerable amount of fci care. If he is not able to progress significantly next day or so we may need to think about a long-term treatment facility such as [facility] as opposed to just plain old rehab. Thus far we have been able to get him out of the bed. There are multiple family issues involved including the patient's who is essentially wheelchair-bound. cc: Blayne Angel MD
[2019-04-18] MEDS: ZOCOR PO SCH (21:41)
[2019-04-18] MEDS ORDERED: OFIRMEV 1000 MG/ISOTONIC SOLN 1,000 MG/100 ML BOTTLE IV PRN (22:00)
[2019-04-18] MEDS ORDERED: ZOSYN 3.375 GM in NS 50 ML IV ONE (22:05)
[2019-04-18] MEDS ORDERED: VANCOMYCIN 1 GM/NS 1 GM/250 ML IVPB IV ONE (22:05)
[2019-04-19] MEDS: ALBUTEROL NEB INH SCH ×4 (03:43→20:25)
[2019-04-19 05:33] LABS: URINE SOURCE CATH
[2019-04-19 05:36] LABS: BILIRUBIN URINE NEGATIVE (NEGATIVE); BLOOD URINE LARGE (NEGATIVE); COLOR ORANGE; GLUCOSE URINE TRACE mg/dL (NEGATIVE); KETONE URINE NEGATIVE (NEGATIVE); LEUKOCYTES URINE NEGATIVE (NEGATIVE); NITRITE URINE NEGATIVE (NEGATIVE); PROTEIN URINE 300 mg/dL (NEGATIVE); SP GRAVITY URINE 1.022; TURBIDITY URINE TURBID (CLEAR); UROBILINOGEN URINE NORMAL (NORMAL)
[2019-04-19 05:37] LABS: UR EPITHELIAL CELLS <10 /HPF (<10); URINE BACTERIA NEGATIVE /HPF; URINE RBC TNTC /HPF (<10); URINE WBC 20-40 /HPF (<10)
[2019-04-19] MEDS: CLINIMIX E 4.25%-5% SOLUTION 1,000 ML IV SCH ×2 (05:43→13:51)
[2019-04-19] MEDS: LOVENOX SUBQ SCH (05:44)
[2019-04-19] MEDS: FLOMAX PO SCH (08:12)
[2019-04-19] MEDS: MYCOSTATIN SUSP PO SCH ×4 (08:12→21:45)
[2019-04-19] MEDS: ROBITUSSIN PO SCH ×3 (08:12→16:57)
[2019-04-19] MEDS: PRILOSEC PO SCH ×2 (08:12→21:45)
[2019-04-19] MEDS: SYNTHROID PO SCH (08:12)
--- NOTE | 2019-04-19 08:20 | PULMONOLOGY PROGRESS NOTE ---
DATE: 04/18/2019 SUBJECTIVE: The patient appears disoriented. His daughter is at the bedside, and reports he had a better day yesterday, but is not having as good of day today. His IV is currently out, and she reports it is to be replaced. OBJECTIVE: Vital Signs: The patient has been afebrile for the last 24 hours, blood pressure 109/80, heart rate 104, respiratory rate 16, oxygen saturation 90% on 40% FiO2. HEENT: Pupils are equal. Oropharynx appears dry. Neck: Difficult to evaluate due to flexion of the cervical spine. Chest: Good air entry bilaterally with minimal rhonchi. Cardiac: S1, S2. Abdomen: Soft. Extremities: Without edema. IMAGING AND LABORATORY DATA: Chest x-ray reveals generous cardiac silhouette with relatively clear lung godoy. Soft tissue x-ray of the neck has a circular structure over the trachea, which probably represents a tracheoesophageal prosthesis. IMPRESSION: An 83-year-old with: 1. Bibasilar pneumonia. 2. Encephalopathy with fluctuating status. 3. Mucus plugging on trachea at the time of presentation. This does not appear to be an ongoing issue with humidification and bronchodilators. 4. Hypothyroidism. 5. Malnutrition. 6. Remote history of laryngectomy. DISCUSSION: An 83-year-old with problems outlined above. His mental status continues to fluctuate. Radiographically, he appears to be clearing his basilar infiltrates. He has significant hypothyroidism, but it does appear that he has been able to tolerate his p.o. intake of his Synthroid medications. He appears to be the primary caregiver for his , and currently it does not appear that he is likely to return to this role at the time of discharge. I suspect he might have a multifactorial encephalopathy/fluctuating encephalopathy related to his age, history of tobacco use, possible anoxic injury on presentation, and hypothyroidism. PLAN: 1. Continue current antibiotic regimen. 2. Check a urinalysis. 3. Continue bronchodilators. 4. Continue Synthroid replacement per Dr. Angel. 5. Prognosis appears guarded. cc: MD Blayne Lao MD
[2019-04-19] MEDS: MUCOMYST 20% INH SCH ×2 (10:12→20:25)
[2019-04-19] MEDS: D5 1/2 NS 1,000 ML IV SCH ×3 (10:24→23:18)
[2019-04-19] MEDS: DOXYCYCLINE 100 MG in NS 250 ML IV SCH ×2 (10:24→23:03)
--- NOTE | 2019-04-19 16:54 | PROGRESS NOTE ---
DATE: 04/19/2019 SUBJECTIVE: The patient is in bed with his eyes closed but he acknowledges my presence when I ask him if he is awake. He nods appropriately to questions. His daughter was not present. She assured me yesterday that she was aware that I would be around between 8:00 and 9:00 every day and that she would be there for the next four days. The patient is obviously not able to voice any complaints but when asked about certain things such as pain, discomfort, shortness of breath - he nodded no. OBJECTIVE: Vital Signs: Temperature 97.9, pulse 66, respirations 14, blood pressure 122/80, O2 saturation 99% on trach collar. Lungs: Clear. Cardiovascular: Regular. Abdomen: Bowel sounds are present. Extremities: Show no peripheral edema. ASSESSMENT AND PLAN: 1. The patient's mental status continues at about the same place as it was before. He seems to be engaged but is not doing much for himself. He is still very weak. Consideration for MRI will be made, but I am not sure that he could tolerate the procedure. 2. 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 Bilateral pneumonia per x-ray, he is followed by Dr. Richards. He is on appropriate antibiotics. Last night he spiked a fever and we had blood cultures redrawn. I wonder if it has anything to do with Horton catheter that he has had in since he was brought in. We sent off for urinalysis and urine culture as well. 3. The patient's nutrition is questionable. He will eat if continually stimulated and fed. We have Clinimix going. I am going to add some D5 and some overall fluids to try and hydrate him a little bit better. I was disappointed the patient's daughter was not there because he apparently he eats very well when family members are there to try and help him. 4. The patient has continued weakness. He has not really made a bunch of progress Physical Therapy. He had a Speech Therapy evaluation yesterday because I was not sure whether his laryngeal prosthesis was in. X-ray seemed to indicate that it was but I have not had any contact with the speech therapist who is going to do the evaluation, although he had promised to call me on this. 5. Hypothyroidism. The patient is on replacement for his thyroid hormone. 6. Deep venous thrombosis prophylaxis is in place. 7. Patient's short-term and long-term placement following hospitalization is questionable. I will speak to the daughter again this afternoon as she left her phone number. cc: Blayne Angel MD
[2019-04-19] MEDS ORDERED: STERILE WATER INJ. INJ ONE (19:52)
[2019-04-19] MEDS ORDERED: STERILE WATER INJ. INJ PRN (19:52)
[2019-04-19] MEDS ORDERED: GEODON IM PRN (19:52)
[2019-04-19] MEDS ORDERED: GEODON IM ONE (19:52)
[2019-04-19] MEDS: ZOCOR PO SCH (21:45)
[2019-04-20] MEDS: ALBUTEROL NEB INH SCH ×4 (03:30→21:12)
[2019-04-20] MEDS: CLINIMIX E 4.25%-5% SOLUTION 1,000 ML IV SCH (05:34)
[2019-04-20 06:19] LABS: BASO# 0.01 X1000 (0.0-0.2); BASO% 0.1 % (0.0-0.8); EOS# 0.38 X1000 (0.0-0.7); EOS% 5.4 % (0.0-10.0); HEMATOCRIT 41.1 % (42.0-52.0); HEMOGLOBIN 12.9 g/dL (14.0-18.0); LYMPH# 0.57 X1000 (1.2-3.4); LYMPH% 8.1 % (20.5-51.1); MCH 26.3 PG (27-31); MCHC 31.4 g/dL (33-37); MCV 83.9 FL (81-99); MONO# 0.56 X1000 (0.11-0.59); MONO% 7.9 % (1.7-9.3); MPV 12.3 FL (7.4-10.4); NEUT# 5.54 X1000 (1.4-6.5); NEUT% 78.5 % (42.2-75.2); PLT 223 X1000 (130-400); RDW 15.3 % (11.5-14.5); WBC 7.06 X1000 (4.8-10.8)
[2019-04-20 06:42] LABS: AGAP 11; BUN 25 mg/dL (8-22); CALCIUM 8.5 mg/dL (8.8-10.2); CHLORIDE 99 mmol/L (98-107); COSMO 276; CREATININE 0.8 mg/dL (0.7-1.2); ESTIMATED GFR > 60; GLUCOSE 152 mg/dL (70-104); POTASSIUM 4.2 mmol/L (3.5-5.1); SODIUM 134 mmol/L (136-145); TCO2 24 mmol/L (25-35)
[2019-04-20] MEDS: MUCOMYST 20% INH SCH ×2 (08:07→21:12)
[2019-04-20] MEDS: PRILOSEC PO SCH ×2 (08:59→21:27)
[2019-04-20] MEDS: MYCOSTATIN SUSP PO SCH ×4 (08:59→21:26)
[2019-04-20] MEDS: SYNTHROID PO SCH (08:59)
[2019-04-20] MEDS: ROBITUSSIN PO SCH ×3 (08:59→17:15)
[2019-04-20] MEDS: FLOMAX PO SCH (08:59)
[2019-04-20] MEDS: DOXYCYCLINE 100 MG in NS 250 ML IV SCH (08:59)
[2019-04-20] MEDS: D5 1/2 NS 1,000 ML IV SCH (09:13)
[2019-04-20] MEDS: LOVENOX SUBQ SCH (11:45)
[2019-04-20] MEDS ORDERED: STERILE WATER INJ. INJ ONE ×2 (14:37→16:23)
[2019-04-20] MEDS ORDERED: GEODON IM ONE ×2 (14:37→16:23)
--- NOTE | 2019-04-20 19:30 | PROGRESS NOTE ---
DATE: 04/19/2019 SUBJECTIVE: This morning when I came in, the patient was sitting up, his eyes are open. He was alert, responsive, seemed to respond to questions appropriately, mouthing the words. I had difficulty understanding him, but his daughter was better able to translate that. He had eaten well the previous day, and physical therapy and speech therapy notes were all positive. I spoke privately with the daughter for a good 15 minutes about future plans. They are scheduled to meet with the [facility] people today to see if he is an appropriate candidate. Later in the day, I was called and told the patient was agitated and combative, and they wanted restraints for him, which I have no explanation for whatsoever. OBJECTIVE: Temperature 98.8 degrees, pulse 82, respirations 16, blood pressure 132/78, 95% saturated on trach collar. LABORATORY: White cell count 7.0, hematocrit 41.1. BUN 25, creatinine 0.8. Blood sugars are in a good range. ASSESSMENT AND PLAN: 1. Mental status for the patient continues to be fluctuant and although overall he continues on a trajectory of improvement, it is very difficult to literacy coordinator his demeanor or actions on a given day or basis. His daughter states that many times he is appropriate, engaged, and recognizes her; other times he does not. 2. The patient has Methicillin resistant Staphylococcus aureus in his tracheostomy, possible bilateral pneumonia. He is being followed by Dr. Richards. He is still on doxycycline. 3. The patient's nutrition is questionable. He is eating better when he has a family member there or when the staff will stand by his side and feed him for a long time. Will discontinue his Clinimix today. 4. The patient continues with weakness and difficulty with balance. Physical therapy notes are not promising. He has difficulty sitting up without assistance and cannot maintain his balance. He has not been attempted to stand up at the present time because of continued balance and strength issues. Speech therapy notes indicated that the patient could phonate with occlusion of the tracheostomy. 5. The patient's hypothyroidism is being repleted. 6. Deep venous thrombosis prophylaxis is on board. 7. Plan on discontinuing the patient's Horton catheter today, and discontinuing his Clinimix. I am going to try and detether him slightly, but given the phone call I received in the afternoon about combative behavior, I have no great hope of success that these will change his mental status or behavior patterns. Hopefully, we will have notes from the [facility] people as to whether he is a candidate or not by the end of the day. cc: Blayne Angel MD
[2019-04-20] MEDS: DOXYCYCLINE PO SCH (21:26)
[2019-04-20] MEDS: ZOCOR PO SCH (21:27)
[2019-04-21] MEDS: CLINIMIX E 4.25%-5% SOLUTION 1,000 ML IV SCH (00:57)
[2019-04-21] MEDS: ALBUTEROL NEB INH SCH ×4 (03:10→21:47)
[2019-04-21] MEDS: FLOMAX PO SCH (08:24)
[2019-04-21] MEDS: ROBITUSSIN PO SCH ×3 (08:24→17:28)
[2019-04-21] MEDS: LOVENOX SUBQ SCH (08:25)
[2019-04-21] MEDS: PRILOSEC PO SCH ×2 (08:25→20:23)
[2019-04-21] MEDS: MYCOSTATIN SUSP PO SCH ×4 (08:25→20:23)
[2019-04-21] MEDS: DOXYCYCLINE PO SCH ×2 (08:25→20:23)
[2019-04-21] MEDS: SYNTHROID PO SCH (08:25)
[2019-04-21] MEDS: MUCOMYST 20% INH SCH ×2 (09:07→21:47)
[2019-04-21] MEDS: SEROQUEL PO SCH ×2 (17:39→20:23)
--- NOTE | 2019-04-21 17:52 | DISCHARGE SUMMARY ---
ADMISSION DATE: 04/05/2019 DISCHARGE DATE: DISCHARGE DIAGNOSIS: 1. Tracheostomy, mucus plug. 2. Hypoxemia. 3. Respiratory distress. 4. Methicillin resistant Staphylococcus aureus colonized from the tracheostomy site. 5. Dementia with sundowner's. 6. Other problems with gait and mobility. 7. Pulmonary infarct with infiltrate on chest x-ray. 8. History of laryngectomy with tracheostomy. 9. Elevated blood sugar. CONSULTATIONS: 1. Maurice Singleton MD . 2. Roel Cook III, MD. 3. Rosmery Olguin MD. OPERATIVE PROCEDURES: None. HOSPITAL COURSE: This 83-year-old white male was living at home with his . He presented to the emergency room after falling and suffering a laceration to his forehead. He was sent home. A few days later, he fell again and was found to be in respiratory distress. Eventually, they recognize that he had a mucus plug in his tracheostomy and were able to retrieve it. This took place at [facility] and the patient was admitted to the hospitalist service there. He was eventually transferred to [facility] but stayed on the hospitalist service for approximately 48 hours before I was notified of his admission. He was then transferred to my care after there was a CAT call on him and they again found a large mucus plug in his tracheostomy which was removed and restored his oxygen levels. He was brought to the ICU for several days for close observation. We started humidified aerosol to his tracheostomy site. Unfortunately, he was slow to wake up and apparently after a couple days we figured out that he was getting a lot of sedatives in the ICU. His told me that he is very easily sedated by medications and after receiving multiple doses of Ativan over the weekend, it took several days to really have him regain anything close to his normal sensorium. We transferred him to the step-down unit, and the patient had a waxing and waning course of neurological interaction. Given the fact that he has had 2 hypoxemic events, we wanted to try and check him out neurologically. The neurologist who examined him could not find any real findings other than medication interactions with a dementia patient in a foreign environment. CT scan of the brain showed no acute infarcts. He was not a candidate for an MRI. It was not thought that he a hypoxic brain injury Over the course of days to weeks, the patient had some days when he was very much alert, eyes open and interactive and other times when he was combative, completely disoriented and required sedation and sometimes restraint. From a respiratory standpoint, cultures from his tracheostomy site grew MRSA, which was sensitive to doxycycline and he was on that medication hospitalization. He did not have staph bacteremia or any signs of sepsis through the latter part of his hospitalization. The patient did require suctioning from his tracheostomy multiple times. The large and very severe mucus plugs were not discovered during routine suctioning. We had difficulty with the patient's nutrition as when the patient was disoriented or sleepy, he would not partake of any p.o. nutrition. He seemed to perk up quite a bit when family members were there. We had to instruct the staff to stand by his bedside for as long as necessary to get food down him. He would generally try and eat in and would finish of 50% of his meals if fed by the staff. We also ran some Clinimix into his IV for little bit of protein support. This was discontinued prior to discharge. Speech therapy was consulted and because of rather odd placement of his laryngeal prosthesis, no real action was taken. In the past, the patient has actually had to be transferred to [facility] to change out the laryngeal prosthesis, as they are the only ones that seem to be able to do this because of its rather odd location. Physical therapy was also consulted with the patient had great difficulty with going beyond sitting on the edge of the bed. He tended to lean backwards and was having difficulty orienting on himself unless his feet were touching the floor. He was unable to regain his feet and at baseline was actually walking independently without any other aid. It is rather odd that he never was able to get the coordination or strength necessary to actually get on his feet. On several occasions he was actually lifted and put in the chair for a time, but this did not last very long and was generally very tedious and difficult for the staff to do for him because he is a very large man. It is noted the patient's blood sugar was a little bit elevated and he does have a remote history with metabolic syndrome or elevations in blood sugar. Over the course of last years, he has lost considerable amount of weight. The weight loss that the patient suffered over the last year or so may contribute to the fact that he does not need any type of diabetic medication at the present time. This may need to be reconsidered in the future if his nutrition improves. The patient has some mild dementia at baseline. It is very difficult to tell because his communication is so labored and so difficult because of the laryngectomy and tracheostomy problems that he suffers from. His states that for over a year, he has been having a sort of nighttime agitation and combativeness even at home and this was only worsened during his hospitalization. He required sedation on multiple occasions with some Geodon. Use of benzodiazepines was not fruitful in that it knocked him out for wait too long and made him difficult to deal with the following day. We actually spoke to his neurologist, Dr. Samuel, in [place]. The patient had not seen Dr. Samuel in over 9 months, but he recommended that we use something like Seroquel or another atypical antipsychotic for sedation when necessary. In speaking with the patient's daughter and his , they would certainly like him to return home, but because of the difficulty with his tracheostomy needs, his nutritional status, and inability to regain his feet, we felt that his best option would be transferred to an LTAC unit where they could be more attuned to his specific needs. I do not think that he would do well at a traditional rehabilitation unit because he needs too much care for that, and without family members able to support him, it would be very difficult to make any progress in that particular environment. His is nearly wheelchair-bound due to multiple other medical conditions. It is hopeful that if he has intensive enough rehab and bounces back significantly that he could return home eventually, but both the and daughter are aware that this may not be possible if he does not regain his feet at the end of his maximum benefit. At that point, he would have to go to senior living. cc: Blayne Angel MD [facility]ASSET[facility] HOSPITALSherry
[2019-04-21] MEDS: ZOCOR PO SCH (20:23)
--- NOTE | 2019-04-21 20:29 | PROGRESS NOTE ---
DATE: 04/21/2019 SUBJECTIVE: When I came in the room this morning I was surprised to see the patient's daughter and his present. As far as I am aware, the patient's had not been to the hospital yet to see him. She is more less confined to a wheelchair at the present time with multiple health problems of her own. The patient was very animated, awake, alert and attempting to talk to everyone. He was smiling and laughing and seemed much more like his old self. Overnight the patient had agitation, required 4-point restraints and sedation to keep him under control and to prevent him from hurting himself. He kept trying to get out of the bed. Today that appears to be all gone. OBJECTIVE: Vital Signs: Temperature 98.2, heart rate 85, respirations 17, blood pressure 133/101, 96% saturated on humidified trach collar. Lungs: Clear. Cardiovascular: He is regular, non-tachycardic. Extremities: Show no peripheral edema. INTERNET MARKETER: Neurological status is as described in the history of present illness. ASSESSMENT AND PLAN: 1. Mental status for the patient is quite good in the morning. We hope this will hold overnight. The patient's daughter spoke with Dr. Samuel or his surrogate. Dr. Samuel is his neurologist in [place], although he has not seen him for over [address] Samuel stated that he would be able to confer if the patient was transferred to the LTAC unit in [place] and suggested that we use Seroquel or something similar for sedation as needed. The patient's daughter had requested that we reconsult Dr. Cook for today, which I believe that order was already put in. 2. The patient's Methicillin-resistant Staphylococcus aureus in the tracheostomy site is noted. He is still on doxycycline. 3. The patient's nutrition status is improving. He is eating at least 50% of his meals when served by the staff there. When a family member feeds him he eats rather voraciously. He was still on Clinimix and I am going to discontinue that today. 4. Patient's physical therapy has not progressed terribly well. He is able to sit on the side of the bed, but has not regained his feet. He seems to have ongoing problems with balance and foot placement. I would note that from a neurological standpoint, the patient was able to phonate with the occlusion of his tracheostomy today. 5. Patient is hypothyroid and is on replacement. 6. Deep venous thrombosis. Prophylaxis is on board. 7. The patient's Horton was discontinued yesterday. 8. I spoke with the [facility] petroleum products sales representative who gave positive approval for transfer to the [place] LTAC unit tomorrow. We will make plans for transfer tomorrow. We will try and detether the patient as appropriate and put in place some orders for p.r.n. sedation. cc: Blayne Angel MD
--- NOTE | 2019-04-21 20:56 | NEUROLOGY PROGRESS NOTE ---
DATE: 04/21/219 SUBJECTIVE: Mr. Wing has been generally improving mentally. However, he has had some times of increased agitated confusion. Family present at the bedside now noted him to be confused when they were called back to the hospital night before last. He was having obvious hallucinations, agitated, moving his arms and legs equally. Later in the day when he was awake and alert, had some conversation with him and believes that he recognized at least some of the experience was hallucination. gives history that he has baseline forgetfulness, which has been significant. She reports Dr. Samuel, his treating neurologist in [place], had started donepezil and Mr. Wing did not tolerate that because of increased salivation and possibly increased gait difficulty. does not recall trial with other cholinesterase inhibitor or with memantine. provides history that he has significant gait difficulty going on for more than a year, gradually getting worse. 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 He has had some falls and at least once fell with minor head injury. 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 They do not notice his limited arm movement now to be any more than baseline. Family reports concern for restlessness, poor sleep, agitation. We discussed neuroleptic options. I believe he has had ziprasidone here and Dr. Samuel had discussed quetiapine with family. Today, we discussed the FDA black box warning regarding increased mortality with use of neuroleptic medicines in this setting. IMPRESSION/RECOMMENDATIONS: My impression is that he has baseline dementia, apraxia, recent increased encephalopathy with some psychosis while hospitalized. I agree with low-dose neuroleptic medicine. I encouraged family to keep an open mind and to consider trying medicine to help memory later as an outpatient. I agree with plans for LTAC when practical. I do not have any other suggestion right now. Thanks for asking Neurology to see Mr. Wing. cc: MD Blayne Campa III, MD [facility]herry
--- NOTE | 2019-04-21 21:55 | PULMONOLOGY PROGRESS NOTE ---
DATE: 04/21/2019 SUBJECTIVE: The patient is awake and alert. He is currently on the phone speaking with a family member. It is not clear that he is oriented. OBJECTIVE: Vital Signs: Blood pressure 128/72, heart rate 87, respiratory rate 16, oxygen saturation 94 on trach collar. HEENT: Pupils are equal and reactive. Oropharynx appears clear. Neck: Supple. Chest: Reveals occasional rhonchi bilaterally. Cardiac: S1-S2. Abdomen: Soft. Extremities: Without edema. LABORATORIES: There is no new microbiology or chemistries today. IMPRESSION: An 83-year-old with: 1. Hypoxemic respiratory failure. 2. Mucus plugging at the time of admission. 3. Fluctuating mental status/delirium. 4. Remote history of laryngectomy. 5. Hypothyroidism. 6. Malnutrition. DISCUSSION: An 83-year-old with problems outlined above. He appears to have slow improvement, although it is intermittent and inconsistent. PLAN: 1. Continue bronchodilators and mucolytics. 2. Continued humidify O2. 3. Anticipate discharge soon. cc: MD Blayne Lao MD
[2019-04-22] MEDS: ALBUTEROL NEB INH SCH ×2 (03:10→08:15)
[2019-04-22] MEDS: LOVENOX SUBQ SCH (06:01)
[2019-04-22] MEDS: MUCOMYST 20% INH SCH (08:15)
[2019-04-22] MEDS: MYCOSTATIN SUSP PO SCH (08:28)
[2019-04-22] MEDS: FLOMAX PO SCH (08:28)
[2019-04-22] MEDS: SYNTHROID PO SCH (08:28)
[2019-04-22] MEDS: PRILOSEC PO SCH (08:28)
[2019-04-22] MEDS: ROBITUSSIN PO SCH ×2 (08:28→08:30)
[2019-04-22] MEDS: DOXYCYCLINE PO SCH (08:28)
[2019-04-22 08:49] VITALS: BP 129/74
== END 2019-04-22 10:27 | DRG 205 ==
LOC: P.ED 15:26 → P.EDIPHOLD 23:16 → SUATTDRO 23:16 → SUPCPDRO 23:16 → 2N 04-06 08:40 → ICU 04-06 19:09 → 2N 04-11 13:35
PROVIDERS: ADMIT Internal Medicine; ATTEND Internal Medicine